=== PATIENT | male | born 1955 | race Caucasian/White ===

== ENCOUNTER 2022-03-14 07:47 | Outpatient (CLI) | payer MEDICARE, BC, SELFPAY ==
[2022-03-14 11:30] LABS: Albumin* 4.3 g/dL (3.3-5.0); Chloride* 106 mmol/L (96-114); Potassium* 4.4 mmol/L (3.6-5.1); Sodium* 142 mmol/L (135-149)
[2022-03-14 11:32] LABS: Carbon Dioxide* 32 mmol/L (20-32); Cholesterol* 140 mg/dL (90-199); Creatinine* 1.1 mg/dL (0.5-1.5); Estimated Glomerular Filt Rate 75 ml/min
[2022-03-14 11:33] LABS: Alanine Aminotransferase* 24 U/L (4-50); Alkaline Phosphatase* 83 U/L (40-150); Aspartate Amino Transferase* 38 U/L (12-35); Bilirubin Total* 0.7 mg/dL (0.1-1.5); Blood Urea Nitrogen* 19 mg/dL (7-30); Calcium* 9.5 mg/dL (8.4-10.6); HDL Cholesterol* 62 mg/dL (>=40); LDL Cholesterol Calculated 66 mg/dL (<100); Total Protein* 6.7 g/dL (6.0-8.3); Triglycerides* 60 mg/dL (40-149)
[2022-03-14 11:48] LABS: Glucose* 94 mg/dL (60-115)
[2022-03-14 12:23] LABS: PSA Screen* 2.37 ng/mL (0.10-4.00)
== END 2022-03-14 07:48 | disposition home or self-care (01) ==
PROVIDERS: PCP Family Medicine; Visit Provider Family Medicine
DX: Z00.00 Encounter for general adult medical examination without abnormal findings (principal); I48.0 Paroxysmal atrial fibrillation; Z12.5 Encounter for screening for malignant neoplasm of prostate; Z13.6 Encounter for screening for cardiovascular disorders; Z79.01 Long term (current) use of anticoagulants
CPT/HCPCS: 80053; 80061; 84153

== ENCOUNTER 2022-03-23 15:04 | Outpatient (CLI) | payer MEDICARE, BC, SELFPAY ==
--- NOTE | 2022-03-23 15:00 | CRLHL7_ITS ---
For Patients: As a result of the Century Cures Act, medical imaging exams and procedure reports are released immediately into your electronic medical record. You may view this report before your referring provider. If you have questions, please contact your health care provider. Indication: Shoulder pain Technique: Noncontrast CT left shoulder Please note that all CT scans at this facility use dose modulation, iterative reconstruction, and/or weight-based dosing when appropriate to reduce radiation dose to as low as reasonably achievable. Comparison: X-rays 03/16/2022, MRI 08/26/2019 Findings: Degenerative joint disease of the glenohumeral joint with subchondral cystic change in the posterior glenoid. Normal glenohumeral alignment without posterior subluxation or dislocation. Mild degenerative change at the greater tuberosity. Intact visualized ribs. Clear left lung. Mild dependent areas of atelectasis incidentally noted. Narrowing and spurring at the acromioclavicular joint. Mild lateral downsloping of a type 2 acromion with subacromial spur formation. No axillary adenopathy or soft tissue mass. Impression: Acromioclavicular and glenohumeral degenerative joint disease with subacromial spur suggesting clinical impingement. No fracture or intrinsic osseous lesion. Please note that all CT scans at this facility use dose modulation, iterative reconstruction, and/or weight-based dosing when appropriate to reduce radiation dose to as low as reasonably achievable. Dictated by Santosh Hess MD @ 03/24/2022 11:34:51 AM (Electronically Signed)
== END 2022-03-23 15:05 | disposition home or self-care (01) ==
LOC: CT 15:05
PROVIDERS: PCP Family Medicine; Visit Provider Physician Assistant Surgical
DX: M25.512 Pain in left shoulder (principal); M19.012 Primary osteoarthritis, left shoulder; S49.92XA Unspecified injury of left shoulder and upper arm, initial encounter
CPT/HCPCS: 73200

== ENCOUNTER 2022-09-27 08:17 | Outpatient (CLI) | payer MEDICARE, BC, SELFPAY | END 2022-09-27 08:18 | disposition home or self-care (01) | LOC: NFLDREF 08:18 | PROVIDERS: PCP Family Medicine; Visit Provider Family Medicine | DX: R30.0 Dysuria (principal); N39.0 Urinary tract infection, site not specified | CPT/HCPCS: 87086 ==

== ENCOUNTER 2022-11-25 08:10 | Emergency (ER) | payer MEDICARE, BC, SELFPAY ==
[2022-11-25 08:17] VITALS: BP 112/71; PULSE 84; RESP 17; TEMP 36.1; O2SAT 99; BMI 25.1
[2022-11-25 08:33] LABS: Appearance Urine Cloudy (Clear); Bilirubin Urine 1+ (Negative); Blood Urine 3+ (Negative); Color Urine Red (Yellow); Glucose Urine Negative (Negative); Ketones Urine Negative (Negative); Leukocyte Esterase Urine Trace (Negative); Nitrite Urine Negative (Negative); Protein Urine 3+ (Negative); Specific Gravity Urine 1.015 (1.000-1.030); Urobilinogen Urine 0.2 (0.2-1.0)
[2022-11-25 08:44] LABS: Bacteria Urine Few; RBC Urine >100 (0-2); Squamous Epithelial Cell Urine Few (None-Few); WBC Urine 25-50 (0-5)
--- NOTE | 2022-11-25 08:49 | ED.MALEGU ---
HPI - Male Genitourinary General Time Seen by Provider: 08:49 Date Seen: 11/25/22 Chief complaint: Urogenital Problems, Male Stated complaint: post op prostate, blood clot in urine Time Seen by Provider: 11/25/22 08:48 Source: patient and RN notes reviewed Mode of arrival: ambulatory Limitations: no limitations History of Present Illness HPI Narrative: This 67-year-old male is coming in with complaint of large pieces of tissue or clot in increasing blood in his urine after an aquablation of his prostate done by Dr. plascencia on Sunday at [place]. He was observed overnight, discharged on . He states he did walk the dog about 3 times yesterday, maybe about 10-15 minutes each time. Urine had been clearing up. He had seen some small clots. He had not noted any large chunks. He states he has are almost like rubbery looking. He has not had any abdominal pain, no fever. He did state that the surgeon told him he could do walking. He has not restarted his Coumadin. He is on this for atrial fibrillation and history of factor 5 Leiden. He is never had a thrombotic event. Related Data Home Medications Medication Instructions Recorded Confirmed tamsulosin 0.4 mg capsule 0.4 mg PO QDAY 05/19/22 11/07/22 finasteride 5 mg tablet 5 mg PO QDAY 11/01/22 11/07/22 flecainide 100 mg tablet 25 mg PO BID 11/01/22 11/07/22 Previous Rx's Medication Instructions Recorded peg 3350-electrolytes 236 240 ml PO Q10M #4,000 mL 07/26/22 gram-22.74 gram-6.74 gram-5.86 gram solution (Golytely) warfarin 5 mg tablet 5 mg PO QDAY #90 tabs 09/22/22 cephalexin 500 mg tablet 500 mg PO TID #9 tabs 11/25/22 Allergies Allergy/AdvReac Type Severity Reaction Status Date / Time No Known Drug Allergies Allergy Verified 11/07/22 14:35 Review of Systems Narrative: As per HPI. [facility] Medical History (Updated 11/25/22 @ 09:32 by Debby Sheriff MD) Bilateral tinnitus ?H93.13 - Tinnitus, bilateral (ICD-10) Snoring ?R06.83 - Snoring (ICD-10) Pneumonia (2016) ?J18.9 - Pneumonia, unspecified organism (ICD-10) Paroxysmal atrial fibrillation ?I48.0 - Paroxysmal atrial fibrillation (ICD-10) Numbness of toes ?R20.0 - Anesthesia of skin (ICD-10) Lumbar back pain ?M54.50 - Low back pain, unspecified (ICD-10) Factor V Leiden mutation ?D68.51 - Activated protein C resistance (ICD-10) Long-term (current) use of anticoagulants, INR goal 2.0-3.0 ?Z79.01 - senior living (current) use of anticoagulants (ICD-10) Surgical History (Updated 09/27/22 @ 09:14 by Anayeli Stewart MD) H/O cardiac radiofrequency ablation (09/2022) ?Z98.890 - Other specified postprocedural states (ICD-10) History of rhinoplasty (1999) ?Z98.890 - Other specified postprocedural states (ICD-10) History of repair of fracture of facial bone (2015) ?Z98.890 - Other specified postprocedural states (ICD-10) ?Z87.81 - Personal history of (healed) traumatic fracture (ICD-10) History of arthroscopy of knee (02/02/04) ?Z98.890 - Other specified postprocedural states (ICD-10) Family History (Updated 09/20/21 @ 15:17 by Cholo Wilson) Father CHF (congestive heart failure) Prostate cancer, Onset Age: 87 Type 2 diabetes mellitus Mother Factor V Leiden mutation Social History (Updated 03/14/22 @ 07:43 by Anayeli Stewart MD) Narrative: , 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, 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 Did see him ambulate to the bathroom. Face atraumatic, speaking complete sentences. Lungs clear, CV regular rate and rhythm no murmur, normal S1-S2. Abdomen is soft, no rebound or guarding, nontender. Documenting provider has reviewed patient's vital signs: yes Course Course ED Course: Reviewed there are white cells and blood in the urine, there is a small amount of bacteria. Patient states he was on antibiotics while he had the Lion catheter in after the procedure but stopped once this was out. Will contact Urology through [email or web address], he was wondering if it would be his own personal physician. Reviewed with him that we only contact whoever is on-call. Likely this is maybe normal tissue and blood after this surgical procedure but want to review with the surgeon on-call. Reevaluation(s) Time of Reevaluation #1: 09:30 Reevaluation #1: Reviewed my conversation with urologist. Patient also did advise me that he had a more constipated stool which he did have to push yesterday. He is on a stool softener and will stay on this. Consultations Consultation #1: Spoke with Dr. Colon, reviewed case. He agrees to place patient on Keflex for few days while we await urine culture. Limit activity. Nothing concerning here that he thinks warrants any further management or evaluation at this time. Time: :23 Vital Signs Vital signs: Initial Vital Signs Temperature 96.9 F L 11/25/22 08:17 Temperature Source Temporal Artery Scan 11/25/22 08:17 Pulse Rate 84 11/25/22 08:17 Respiratory Rate 17 11/25/22 08:17 Blood Pressure 112/71 11/25/22 08:17 Blood Pressure Mean 84 11/25/22 08:17 Pulse Oximetry 99 11/25/22 08:17 Oxygen Delivery Method Room Air 11/25/22 08:17 Vital Signs Temperature 96.9 F L 11/25/22 08:17 Pulse Rate 84 11/25/22 08:17 Respiratory Rate 17 11/25/22 08:17 Blood Pressure 112/71 11/25/22 08:17 Pulse Oximetry 99 11/25/22 08:17 Oxygen Delivery Method Room Air 11/25/22 08:17 Temperature 96.9 F L 11/25/22 08:17 Pulse Rate 84 11/25/22 08:17 Respiratory Rate 17 11/25/22 08:17 Blood Pressure 112/71 11/25/22 08:17 Pulse Oximetry 99 11/25/22 08:17 Oxygen Delivery Method Room Air 11/25/22 08:17 MDM - Male Genitourinary Lab Data Attestation: I reviewed the patient's lab results. Labs: Lab Results 11/25/22 Range/Units 08:25 Urine Color Red A (Yellow) Urine Appearance Cloudy A (Clear) Urine pH 7.0 (5.0-8.5) Ur Specific [place] 1.015 (1.000-1.030) Urine Protein 3+ A (Negative) Urine Glucose (UA) Negative (Negative) Urine Ketones Negative (Negative) Urine Blood 3+ A (Negative) Urine Nitrite Negative (Negative) Urine Bilirubin 1+ A (Negative) Urine Urobilinogen 0.2 (0.2-1.0) Ur Leukocyte Esterase Trace A (Negative) Urine RBC >100 A (0-2) Urine WBC 25-50 A (0-5) Ur Squamous Epith Cells Few (None-Few) Urine Bacteria Few A (None) Discharge Plan Discharge Clinical Impression: Hematuria Patient Disposition: Home, Self-Care Condition: Stable Additional Instructions: Continue to follow postoperative instructions. Would not have you start your Coumadin at this point. You may need to limit activity more if you are seen hematuria/bleeding. Will place you on antibiotic while we await the urine culture. Should you have bleeding to the point that clots or obstructing urine, develops abdominal pain or fever, do need to be re-evaluated. If you find that the stool softener you are on is not adequate enough, could initiate MiraLax 17 g daily to help with softer stools through this. Activity Level: No strenuous activity Prescriptions: New cephalexin 500 mg tablet 500 mg PO TID Qty: 9 0RF No Action tamsulosin 0.4 mg capsule 0.4 mg PO QDAY flecainide 100 mg tablet 25 mg PO BID finasteride 5 mg tablet 5 mg PO QDAY peg 3350-electrolytes [Golytely] 236-22.74-6.74 -5.86 gram recon soln 240 ml PO Q10M Qty: 4000 0RF Rx Instructions: until fecal effluent is clear warfarin 5 mg tablet 5 mg PO QDAY Qty: 90 0RF Protocol: Dose Management Condition: Sunday Dose/Route: 5 mg Instruction: 1 x 5 mg tablet Condition: Sunday Dose/Route: 7.5 mg Instruction: 1.5 x 5 mg tablets Condition: Sunday Dose/Route: 5 mg Instruction: 1 x 5 mg tablet Condition: Sunday Dose/Route: 5 mg Instruction: 1 x 5 mg tablet Condition: Dose/Route: 7.5 mg Instruction: 1.5 x 5 mg tablets Condition: Sunday Dose/Route: 5 mg Instruction: 1 x 5 mg tablet Condition: Sunday Dose/Route: 5 mg Instruction: 1 x 5 mg tablet Protocol Text: Adjustment Start Date: Sunday11/15/22 INR Value: 1.7 INR Date: 11/15/22 Recheck Date: 11/29/22 Follow Up/Referrals: Anayeli Stewart MD [Primary Care Provider] - Stand Alone Forms: [employer] Info Instructions
--- NOTE | 2022-11-25 09:14 | ED.NURSE ---
[facility] paged for patient, awaiting call back.
== END 2022-11-25 09:38 | disposition home or self-care (01) ==
PROVIDERS: Emergency Provider Family Medicine; PCP Family Medicine
DX: R31.9 Hematuria, unspecified (principal)
CPT/HCPCS: 81001; 87086; 99283; 99284

== ENCOUNTER 2023-01-16 07:13 | Outpatient (CLI) | payer MEDICARE, BC, SELFPAY ==
--- NOTE | 2023-01-16 08:04 | W.ANESCHARGE ---
Anesthesia Charges Start Date/Time Anesthesia Start Date: 01/16/23 Anesthesia Start Time: 08:08 Stop Date/Time Anesthesia Stop Date: 01/16/23 Anesthesia Stop Time: 08:46
--- NOTE | 2023-01-16 08:50 | W.ANESCHARGE ---
Anesthesia Charges Start Date/Time Anesthesia Start Date: 01/16/23 Anesthesia Start Time: 08:08 Stop Date/Time Anesthesia Stop Date: 01/16/23 Anesthesia Stop Time: 08:46
== END 2023-01-16 07:14 | disposition home or self-care (01) ==
LOC: OP CLINIC 07:13
PROVIDERS: PCP Family Medicine; Visit Provider Surgery
DX: Z12.11 Encounter for screening for malignant neoplasm of colon (principal); K63.5 Polyp of colon; K64.4 Residual hemorrhoidal skin tags; Z86.010 Personal history of colon polyps
CPT/HCPCS: 00811; 45385; 88305; J2704

== ENCOUNTER 2023-03-18 20:10 | Outpatient (CLI) | payer MEDICARE, BC, SELFPAY ==
--- OUTSIDE RECORDS SUMMARY | 2023-03-18 20:13 | XMS_ITS | Referral Summary ---
Author Name Unknown Organization [facility] Address [address] [place] [address] Care Team Providers Care Grinder Set Up Operator Universal Name Role Phone Unavailable Primary Care Provider Unavailabl e Source Comments Patient records contain information from all sites at [facility]. For routine questions regarding patient records, call [phone] during business hours, M-F 8:00 AM - 5:00 PM Central Time. Record requests for emergency care only can be directed to [phone] at any time.[facility] Allergies No known active allergies Medications Medication Sig Dispensed Refills Start Date End Date Status tamsulosin (FLOMAX) 0.4 mg 24 hr capsule Take 1 capsule by mouth daily. 0 03/24/2022 Active warfarin (COUMADIN) 5 mg tablet TAKE ONE AND ONE-HALF TABLETS BY MOUTH SUNDAY AND SUNDAY. TAKE 1 TABLET BY MOUTH REST OF THE WEEK DIRECTED 0 06/05/2022 Active flecainide (TAMBOCOR) 100 mg tablet Take 1 tablet by mouth 2 (two) times a day. Extra 1/2 tablet as needed in evening 0 06/06/2022 Active Active Problems Problem Noted Date Diagnosed Date Factor V Leiden Family History 07/10/2022 Intermediate (Current) Anticoagulant Treatment 06/20 Benign Prostatic Hyperplasia Without Lower Urinary Tract Symptom 07/10/2022 Incomplete Bladder Emptying 07/10/2022 Atrial Fibrillation Paroxysmal 04/01/2015 0 07/10/2022 Activated Protein C Resistance 02/27/2013 0 07/10/2022 Ventricular Premature Depolarization 02/27/2013 07/10/2022 Immunizations Name Administration Dates Next Due Influenza, Injectable, Quadrivalent 12/10/2019,1 03/29/2018 Influenza, Quadrivalent, Adjuvanted, Preservativ e Free 11/25/2021 PCV20 03/14/2022 Tdap 06/26/2018 influenza vaccine QV(FLUBLOK) (18 years or older ) (PF) 11/17/2020 influenza vaccine quad (FLUZ ONE/FLUARIX) (6 months and older)(PF) 01/26/2018 Social History Tobacco Use Types Packs/Day Years Used Date Smoking Tobacco: Never Smokeless Tobacco: Never Humiliation, Afraid, Rape, and Kick questionnair e Answer Date Recorded Within the last year, have y ou been afraid of your partner or ex-partner? No 07/10/2022 Within the last year, have y ou been humiliated or emotionally abused in other ways by your partner or ex-partner? No Within the last year, have y ou been kicked, hit, slapped, or otherwise physically hurt by your partner or ex-partner? No 07/10/2022 Within the last year, have y ou been raped or forced to have any kind of sexual activity by your partner or ex-partner? No 07/10/2022 Social Connection and Isolat ion Panel [NHANES] Answer Date Recorded In a typical week, how many times do you talk on the phone with family, friends, or neighbors? More than three times a week 07/10/2022 How often do you get togethe r with friends or relatives? More than three times a week 07/10/2022 How often do you attend chur or pentecostalism services? More than 4 times per year 07/10/2022 Do you belong to any clubs o r organizations such as mandaen groups, unions, fraternal or athletic groups, or school groups? Yes 07/10/2022 How often do you attend meet ings of the clubs or organizations you belong to? More than 4 times per year 07/10/2022 Are you , , di vorced, , never , or living with a partner? 07/10/2022 AUDIT-C Answer Date Recorded Q1: How often do you have a drink containing alc ohol? Monthly or less 07/10/2022 Q2: How many drinks containi ng alcohol do you have on a typical day when you are drinking? 1 or 2 07/10/2022 Q3: How often do you have si x or more drinks on one occasion? Never 07/10/2022 Overall Financial Resource Strain (CARDIA) Answe r Date Recorded How hard is it for you to pa y for the very basics like food, housing, medical care, and heating? Not hard at all 07/10/2022 [facility] - Occupational Stress Questionnaire Answer Date Recorded Do you feel stress - tense, restless, nervous, or anxious, or unable to sleep at night because your mind is troubled all the time - these days? Only a little 07/10/2022 Exercise Vital Sign Answer Date Recorde d On average, how many days pe r week do you engage in moderate to strenuous exercise (like a brisk walk)? 4 days 07/10/2022 On average, how many minutes do you engage in exercise at this level? 60 min 07/10/2022 Hunger Vital Sign Answer Date Recorded Within the past 12 months, y ou worried that your food would run out before you got the money to buy more. Never true 07/11/19 23 Within the past 12 months, t he food you bought just didn't last and you didn't have money to get more. Never true 07/10/2022 PRAPARE - Transportation Answer Date Re corded In the past 12 months, has l ack of transportation kept you from medical appointments or from getting medications? No 06/20 In the past 12 months, has l ack of transportation kept you from meetings, work, or from getting things needed for daily living? No 07/10/2022 Housing Stability Vital Sign Answer [place] e Recorded In the last 12 months, was t here a time when you were not able to pay the mortgage or rent on time? No 07/10/2022 In the last 12 months, how many places have you lived? 1 07/10/2022 In the last 12 months, was t here a time when you did not have a steady place to sleep or slept in a fdc (including now)? No 07/10/2022 Nutrition Answer Date Recorded Nutrition: EVOO Fat Source No 07/10 On average, how many serving s of fruits and vegetables do you eat per day (serving size is equal to 1 cup or approximately the size of a tennis ball)? 2-3 07/10/2022 Dental Answer Date Recorded Dental: Regular Dentist Yes 07/11/19 Employment Answer Date Recorded Employment status Employed and actively working without restrictions 07/10/2022 Education Answer Date Recorded What is the highest level of school you have completed or the highest degree you have received? 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
--- OUTSIDE RECORDS SUMMARY | 2023-03-18 20:13 | XMS_ITS ---
Author Name Unknown Organization [facility] Address [address] [place] [address] Care Team Providers Care Die Cutter Apprentice Name Role Phone Unavailable Unavailable Unavailable Surgery Details Not on file Complications Check Surgery Details section. Procedure Estimated Blood Loss Check Surgery Details section. Procedure Findings Check Surgery Details section. Procedure Specimens Taken Check Surgery Details section.
--- OUTSIDE RECORDS SUMMARY | 2023-03-18 20:13 | XMS_ITS | Clinical Summary ---
Author Name Unknown Organization [facility] Address [address] [place] [address] Care Team Providers Care Ratings Analyst Name Role Phone Unavailable Primary Care Provider Unavailabl e Source Comments Patient records contain information from all sites at [facility]. For routine questions regarding patient records, call [phone] during business hours, M-F 8:00 AM - 5:00 PM Central Time. Record requests for emergency care only can be directed to [phone] at any time.[facility] Allergies No known active allergies Medications [...] Date Factor V Leiden Family History 07/10/2022 Alf (Current) Anticoagulant Treatment 06/20 Benign Prostatic Hyperplasia [...] (FLUZ ONE/FLUARIX) (6 months and older)(PF) 01/26/2018 Family History Medical History Relation Name Comments Diabetes Father Heart failure Father Prostate cancer Father Factor V Leiden Mother Relation Name Status Comments Father Mother Social History Tobacco Use Types Packs/Day Years [...] How often do you attend chur or mormonism services? More than 4 times per year 07/10/2022 Do you belong to any clubs o r organizations such as hinduism groups, unions, fraternal or athletic groups, or [...] and heating? Not hard at all 07/10/[address] [facility] - Occupational Stress Questionnaire Answer Date Recorded [...] place to sleep or slept in a senior care (including now)? No 07/10/2022 Nutrition Answer Date [...] Master's degree (e.g., NHUNG, MS, Taran, MEd, EDUCATIONAL THERAPY TEACHER, JUSTUS) 07/10/2022 Sex and Gender Information Value Date Recorded Sex Assigned at Male 07/10/2022 8:15 AM CDT Gender Identity Male 07/10/2022 8:15 AM CDT Sexual Orientation Straight 07/10/2022 8: 15 AM CDT Plan of Treatment Health Maintenance Due Date Last Done Comments CT Colonography 1956 Cologuard 1955 Colonoscopy 1955 Colorectal Cancer Screening 1955 FIT 1956 Fasting Glucose for Diabetes Screening 1955 Hepatitis C Screening 1955 Zoster Vaccines (1 of 2) 2006 Depression Screening (Annual PHQ-2) 02/19/2022 Fall Risk Screen (Annual) 02/19/2022 DTaP,Tdap,and Td Vaccines (2 - Td or Tdap) 06/26/2028 06/26/2018 Pneumococcal vaccine (65+ years) Completed 03/14/19 23 COVID-19 Vaccine Completed 01/30/2023, 08/2021, 06/30/2021, Additional history exists Influenza Vaccine Completed 01/30/2023, , 11/17/2020, Additional history exists
--- OUTSIDE RECORDS SUMMARY | 2023-03-18 20:13 | XMS_ITS | Data Portability ---
Author Name Unknown Address [address] [place] [address] Phone [phone] Organization [facility], [facility] Address [address] [place] [address] Care Team Providers Care Server Security Administrator Name Role Phone ALEX SHIN Primary Care Provider Assessment No assessment recorded. Plan of Treatment Reminders Order Date Submit Date Provider Last Modified By Organization Details Last Modified Time Details Appointments ESTABLISH ED 10 2023 10:30A M Mansoor ely MD Not available Not available Not available Lab urinalysi s, dipstick 2022 023 [email or web address] [facility], [address] [place], [address], 10/17/2022 11:38:18 Referral None recorded. Procedures None recorded. Surgeries transuret hral resection of prostate (SURG) 2022 023 [email or web address] Not available 11/21/2022 09:17:54 Imaging None recorded. Medication Orders finasteri de 5 mg tablet 2022 023 [id number], [address] [place], [place], [phone], 12/29/2022 15:19:09 finasteri de 5 mg tablet 2022 023 [id number], [address] [place], [place], [phone], 09/06/2022 11:12:16 Patient TargetsNo targets recorded. Patient Instructions Encounter Date Encounter Id Patient Instructions Last Modified By Organization Details Last Modified Time 12/29/2022 [id number] Jake is ecstati c s/p Aquablation. He'll stop Flomax, and continue finasteride for another 3 months - then stop. With me in 3 months. Not available 12/29/2022 15:19:27 10/17/2022 [id number] I had a long discussion with the patient regarding his symptom severity and his findings from both his imaging and cystoscopy. We first discussed continued medical therapy with alpha-blockade with or without the addition of finasteride 5 mg daily. We discussed expectations in terms of symptom improvement with combination medical therapy as outlined by the MTOPS trial. We then discussed minimally invasive procedures done under anesthesia in the office, notably the Rezum, and Urolift procedures. We discussed surgical outlet procedures done under anesthesia including bi-polar transurethral resection of prostate, transurethral laser vaporization of prostate and Aquablation, which involves high-pressure saline hydrodissection as its core technology for prostate removal. We discussed the technical aspects of these three procedures and that ultimately the goal is the same. We then discussed the associated risks including bleeding requiring transfusion, urinary tract infection, injury to the bladder/ureteral orifices/urinary sphincter, urethral stricture formation, anesthetic risks (CVA/DVT/PE/TN), postoperative urinary retention, and expected durability of treatment with anticipated retreatment rate. We discussed that Aquablation may reduce any worsening in sexual dysfunction post-operatively, but this data is not yet mature. He would like to proceed with Aquablation once it is safe for him to undergo a Coumadin window, possibly in mid Nov 2022. Continue combo therapy until then - patient is tenuously emptying today (we reviewed this). Not available 10/17/2022 11:38:58 Reason for Referral None Reported. Results Created Date Observation Date Name Description Value Unit Range Abnormal Flag LastModifiedBy Organization Detail LastModifiedTime 10/18/19 23 10/17/2022 urina lysis , dipst ick Color-Status Yellow Not Available [facility] [address], [place], [address], 10/17/2022 10:18:52 10/18/19 23 10/17/2022 urina lysis , dipst ick Clarity-Stat us Clear Not Available [facility] [address], [place], [address], 10/17/2022 10:18:52 10/18/19 23 10/17/2022 urina lysis , dipst ick Glucose-Stat us Negati ve Not Available [facility] [address], [place], [address], 10/17/2022 10:18:52 10/18/19 23 10/17/2022 urina lysis , dipst ick Bilirubin-St atus Negati ve Not Available [facility] [address], [place], [address], 10/17/2022 10:18:52 10/18/19 23 10/17/2022 urina lysis , dipst ick Ketones-Stat us Negati ve Not Available [facility] [address], [place], [address], 10/17/2022 10:18:52 10/18/19 23 10/17/2022 urina lysis , dipst ick Sp Helena-Stat us >=1.03 0 Not Available [facility] [address], [place], [address], 10/17/2022 10:18:52 10/18/19 23 10/17/2022 urina lysis , dipst ick Nitrates-Sta tus negati ve Not Available [facility] [address], [place], [address], 10/17/2022 10:18:52 10/18/19 23 10/17/2022 urina lysis , dipst ick Blood-Status Negati ve Not Available [facility] [address], [place], [address], 10/17/2022 10:18:52 10/18/19 23 10/17/2022 urina lysis , dipst ick Leuko-Status Negati ve Not Available [facility] [address], [place], [address], 10/17/2022 10:18:52 10/18/19 23 10/17/2022 urina lysis , dipst ick Specimen Type Voided Not Available [facility] [address], [place], [address], 10/17/2022 10:18:52 Result Notes None recorded. Problems Name Status Onset Date Resolution Date Notes Provider Name and Address Organization Details Recorded Time Lower urinary tract symptoms due to benign prostatic hypertrophy Active 10/18/19 23 Mansoor Abreu MD [address] [place] [address],[address], [address], [facility] 10/17/2022 11:37:18 Retention of urine Active 10/18/19 23 Mansoor Abreu MD [address] [place] [address],[address], [address], [facility] 10/17/2022 11:37:22 Incomplete emptying of bladder Active 10/18/19 23 Mansoor Abreu MD [address] [place] [address],[address], [address], [facility] 10/17/2022 11:37:28 Problem Notes None recorded. Procedures Surgical History Date Name Laterality Status Provider Name and Address Organization Details Recorded Time 12/30/19 23 Bladder Scan completed Juany cordova [facility] 12/29/2022 14:54:57 10/18/19 23 CystoscopyMale completed Mansoor Abreu MD [address] [place] [address],[address], [address], [facility] 10/17/2022 11:37:16 10/18/19 23 Bladder Scan completed Mansoor Abreu MD [address] [place] [address],[address], [address], [facility] 10/17/2022 10:18:49 09/07/19 23 Fill and Pull/Voiding Trial/TOV completed Juany cordova [facility] 09/06/2022 10:41:29 08/20/19 23 cardiac ablation using fluoroscopy guidance completed Juany cordova [facility] 09/06/2022 10:30:04 Imaging Results None recorded. Procedure Notes None recorded. Medical Equipment None Reported. Allergies No known drug allergies Medications Name Sig Start Date Stop Date Status Note LastModified by Organization Details LastModified Time cyclobenzap rine 10 mg tablet TAKE 1/2 TO 1 TABLET BY MOUTH THREE TIMES DAILY NEEDED FOR MUSCLE SPASM active Not Available Not Available No t Available amoxicillin 500 mg capsule TAKE 1 CAPSULE BY MOUTH TWICE DAILY FOR 7 DAYS 10/17 completed Not Available Not Available Not Available flecainide 150 mg tablet active Not Available Not Available Not Available fluconazole 150 mg tablet active Not Available Not Available Not Available warfarin 2.5 mg tablet Take 1 tablet every day by oral route. active Not Available Not Available No t Available ciprofloxac in 500 mg tablet 10/17 completed Not Available Not Available Not Available amoxicillin 875 mg tablet TAKE 1 TABLET BY MOUTH TWICE DAILY 10/17 completed Not Available Not Available Not Available tamsulosin 0.4 mg capsule Take 1 capsule every day by oral route. active Not Available Not Available No t Available cephalexin 500 mg capsule TAKE 1 CAPSULE BY MOUTH THREE TIMES DAILY 12/29 completed Not Available Not Available Not Available pantoprazol e 40 mg tablet,rekha yed release active Not Available Not Available Not Available warfarin 5 mg tablet TAKE 1 TABLET BY MOUTH EVERY DAY OR DIRECTED active Not Available Not Available No t Available flecainide 100 mg tablet TAKE 1 TABLET BY MOUTH EVERY 12 HOURS. MAY TAKE AN EXTRA 1/2 TABLET IN THE PM NEEDED active Not Available Not Available No t Available finasteride 5 mg tablet TAKE 1 TABLET BY MOUTH EVERY DAY 2022 active Not Available Not Available Not Avai lable flecainide active Not Available Not Av ailable Not Available GaviLyte-G 236 gram-22.74 gram-6.74 gram-5.86 gram oral solution active Not Available Not Available Not Available Vitals Date Recorded Body height Body mass index (BMI) Body weight Provider Name and Address Organization Details Last Updated DateTime 09/06/2022 182.88 cm 25.1 kg/m2 47740.59 g Juanychaya Gomezsenthil cordova [facility] 09/06/2022 10:28:38 Date Recorded Body height Body mass index (BMI) Body weight Provider Name and Address Organization Details Last Updated DateTime 10/17/2022 182.88 cm 25.1 kg/m2 76835.59 g Mansoor Abreu MD [address] [place] [address],[address], [address] [place] [address] 10/17/2022 10:17:51 Date Recorded Body height Body mass index (BMI) Body weight Provider Name and Address Organization Details Last Updated DateTime 12/29/2022 182.88 cm 25.1 kg/m2 55089.59 g Juany cordova [facility] 12/29/2022 14:52:31 Social History Question Answer Notes LastModified by Organizat ion Details LastModified Time Tobacco Smoking Status Never Smoker Juany Maldonado tasha [facility] 09/06/2022 10:29:40 What Is Your Level Of Alcohol Consumption? Occasional [email or web address] Information not available 09/06/2022 What Was The Date Of Your Most Recent Tobacco Screening? 12/29/2022 [email or web address] Information not available 12/29/2022 Sex: Male Functional Status None recorded. Mental Status None recorded. Family History Nothing Reported. Medical History Condition Response Kidney Stones N Depression N GERD/Acid Reflux N Cancer N Diabetes N Bleeding Disorder Y Immunizations Vaccine Type Date Status Provider Name and Address Organization Details Recorded Time influenza, injectable, quadrivalent 12/10/2019 completed Mansoor Abreu MD [address] [place] [address],[address] [place] [address], [address], [facility] 10/17/2022 10:17:39 influenza, injectable, quadrivalent 01/26/2019 completed Mansoor Abreu MD [address] [place] [address],[address], [address], [facility] 10/17/2022 10:17:39 influenza, recombinant, quadrivalent,injecta ble, preservative free 11/17/2020 completed Mansoor Abreu MD [address] [place] [address],[address] [place] [address] [place], [address], [facility] 10/17/2022 10:17:39 Influenza vaccine, quadrivalent, adjuvanted 11/25/2021 completed Mansoor Abreu MD [address] [place] [address],[address], [place], [address], [facility] 10/17/2022 10:17:39 COVID-19, mRNA, LNP-S, PF, 100 mcg/0.5mL dose or 50 mcg/0.25mL dose 06/30/2021 completed Mansoor Abreu MD [address] [place] [address],[address], [place], [address], [facility] 10/17/2022 10:17:39 COVID-19, mRNA, LNP-S, PF, 30 mcg/0.3 mL dose 03/18/2020 completed Mansoor Abreu MD [address] [place] [address],[address], [address], [facility] 10/17/2022 10:17:39 COVID-19, mRNA, LNP-S, PF, 30 mcg/0.3 mL dose 04/11/2020 completed Mansoor Abreu MD [address] [place] [address],[address], [address], [facility] 10/17/2022 10:17:39 COVID-19, mRNA, LNP-S, PF, 30 mcg/0.3 mL dose 12/23/2020 completed Mansoor Abreu MD [address] [place] [address],[address], [address], [facility] 10/17/2022 10:17:39 Pneumococcal conjugate PCV20, polysaccharide [id number] conjugate, adjuvant, PF 03/14/2022 completed Mansoor Abreu MD [address] [place] [address],[address], [address], [facility] 10/17/2022 10:17:39 COVID-19, mRNA, LNP-S, bivalent, PF, 50 mcg/0.5 mL or 25mcg/0.25 mL dose 11/25/2021 completed Mansoor Abreu MD [address] [place] [address],[address] [place], [address], [facility] 10/17/2022 10:17:39 Tdap 06/26/2018 completed Mansoor Abreu MD [address] [place] [address],[address], [address], [facility] 10/17/2022 10:17:39 influenza, injectable, quadrivalent, preservative free 01/26/2018 completed Mansoor Abreu MD [address] [place] [address],[facility] [address], [address], [facility] 10/17/2022 10:17:39 Past Encounters Encounter ID Performer Location Encounter Start Date Encounter Closed Date Diagnosis/Indication [id number] CAMELIA GUARDADO [facility] [address] [place] [address] 09/06/2022 10:12:45 09/14/2022 17:59:31 Retention of urine [id number] Mansoor Abreu MD [facility] [address] [place] [address] 10/17/2022 10:02:51 10/20/2022 14:45:08 Lower urinary tract symptoms due to benign prostatic hypertrophy Retention of urine Incomplete emptying of bladder [id number] Mansoor Abreu MD [facility] [address] [place] [address] 12/29/2022 14:45:22 01/03/2023 15:45:39 Lower urinary tract symptoms due to benign prostatic hypertrophy Retention of urine Health Concerns Section Related Observation LastModified by Organization Detai ls LastModified Time None Recorded Concern Status LastModified by Organization Details LastModified Time None Recorded Advance Directives Directive None Recorded Payers Encounter Date Sequence Insurance Name Policy Number Policy Avitia Covered Member ID Avitia Member ID Guarantor Name 12/29/2022 1 [place] [id number] Jake Del Cid [id number] Jake Del Cid 10/17/2022 1 [place] [id number] Jake Del Cid [id number] Jake Del Cid 09/06/2022 1 [place] [id number] Jake Del Cid [id number] Jake Del Cid Notes Date Note Type Note Provider Name and Address Organization Details Recorded Time 09/06/2022 text/html HPI Notes: 67yo male here for evaluation of urinary retention and TOV. He had palma placed at [facility] after a cardiac ablation procedure 1 week ago. Has noted some hematuria with the catheter after activity, he does take coumadin. Prior to the above procedure, reports has seen urology several months ago for retention sx and BPH with LUTS- sx of nocturia and frequency. Had cysto which showed trilobar hyperplasia. Has been on flomax. PSA: 02/03/14- 1.34 Reports this was checked within the last year and it was normal per his recollection (apparently in [place] system). Mhx: afib Fhx: father with prostate cancer (Dx in 80's), brother with BPH CAMELIA GUARDADO [address] [facility],[address], [place], [address], [facility] 09/06/2022 11:12:33 10/17/2022 text/html HPI Notes: 67yo following up for BPH/LUTS, recent urinary retention, passed voiding trial on combo therapy last month. He had palma placed at [facility] after a cardiac ablation procedure Aug 2022. On Coumadin (and mandatory until Nov). Prior to the above procedure, reports has seen urology several months ago for retention sx and BPH with LUTS- sx of nocturia and frequency. Had cysto which showed trilobar hyperplasia. PSA: 02/03/14- 1.34 Reports this was checked within the last year and it was normal per his recollection (apparently in [place] system). Mhx: afib Fhx: father with prostate cancer (Dx in 80's), brother with BPH PVR today 375 mL. Mansoor Abreu MD [address] [facility] [facility],[address], [place], [address], [facility] 10/17/2022 11:39:11 12/29/2022 text/html HPI Notes: 67M s /p Aquablation 11/22/2022, here for follow up. Path: benign. 85 gram gland, recovery has been routine, and back on warfarin. Jake is very happy - great stream, nocturia x 0-1. Emptied bladder before coming over, random bladder scan today: 73 mL (was 375 pre op). Mansoor Abreu MD [address] [facility] [facility],[address], [place], [address], [facility] 12/29/2022 15:19:35
--- OUTSIDE RECORDS SUMMARY | 2023-03-18 20:13 | XMS_ITS | Continuity of Care Document ---
Author Name Unknown Address [address] [place] [address] Phone [phone] Organization [facility], [facility] Address [address] [place] [address] Care Team Providers Care Lotus Notes Administrator Name Role Phone MECLHORALEX LANDURM Primary Care Provider [phone] Assessment No assessment recorded. Plan of Treatment Reminders Order Date Submit Date Provider Last Modified By Organization Details Last Modified Time Details Appointments ESTABLISH ED 10 2023 10:30A M Mansoor ely MD Not available Not available Not available Lab None recorded. Referral None recorded. Procedures None recorded. Surgeries None recorded. Imaging None recorded. Medication Orders finasteri de 5 mg tablet 2022 023 [id number], [address] [place], [place], [id number], 12/29/2022 15:19:09 Patient TargetsNo targets recorded. Patient Instructions Encounter Date Encounter Id Patient Instructions Last Modified By Organization Details Last Modified Time 12/29/2022 [id number] Jake is ecstati c s/p Aquablation. He'll stop Flomax, and continue finasteride for another 3 months - then stop. With me in 3 months. Not available 12/29/2022 15:19:27 Reason for Referral None Reported. Problems Name Status Onset Date Resolution Date Notes Provider Name and Address Organization Details Recorded Time Lower urinary tract symptoms due to benign prostatic hypertrophy Active 10/18/19 23 Mansoor Abreu MD [address] [place] [address],[address], [place], [address], [facility] 10/17/2022 11:37:18 Retention of urine Active 10/18/19 23 Mansoor Abreu MD [address] [place] [address],[address], [place], [address], [facility] 10/17/2022 11:37:22 Incomplete emptying of bladder Active 10/18/19 23 Mansoor Abreu MD [address] [place] [address],[address], [place], [address], [facility] 10/17/2022 11:37:28 Problem Notes None recorded. Procedures Surgical History Date Name Laterality Status Provider Name and Address Organization Details Recorded Time 12/30/19 23 Bladder Scan completed Juany cordova [facility] 12/29/2022 14:54:57 10/18/19 23 CystoscopyMale completed Mansoor Abreu MD [address] [place] [address],[address], [place], [address], [facility] 10/17/2022 11:37:16 10/18/19 23 Bladder Scan completed Mansoor Abreu MD [address] [place] [address],[facility] [address], [place], [address], [facility] 10/17/2022 10:18:49 09/07/19 23 Fill and Pull/Voiding Trial/TOV completed Juany cordova [facility] 09/06/2022 10:41:29 08/20/19 23 cardiac ablation using fluoroscopy guidance completed Juany cordova [facility] 09/06/2022 10:30:04 Imaging Results None recorded. Procedure [...] Updated DateTime 12/29/2022 182.88 cm 25.1 kg/m2 33956.59 g Juany cordova [facility] 12/29/2022 14:52:31 Social History Question Answer Notes LastModified by Organizat ion Details LastModified Time Tobacco Smoking Status Never Smoker Juany cordova [facility] 09/06/2022 10:29:40 What Is Your Level Of Alcohol Consumption? Occasional Information not available 09/06/2022 What Was The Date Of Your Most Recent Tobacco Screening? 12/29/2022 [email or web address] Information not available 12/29/2022 Sex: Male Functional Status None recorded. Mental Status None recorded. Family History Nothing Reported. Medical History Condition Response Diabetes N Bleeding Disorder Y Kidney Stones N Cancer N Depression N GERD/Acid Reflux N Immunizations Vaccine Type Date Status Provider Name and Address Organization Details Recorded Time influenza, injectable, quadrivalent 12/10/2019 completed Mansoor Abreu MD [address] [facility],[address], [place], [address], [facility] 10/17/2022 10:17:39 influenza, injectable, quadrivalent 01/26/2019 completed Mansoor Abreu MD [address] [place] [address],[address] [place] [address], [address], [facility] 10/17/2022 10:17:39 influenza, recombinant, quadrivalent,injecta ble, preservative free 11/17/2020 completed Mansoor Abreu MD [address] [place] [address],[address] [place] [address], [address], [facility] 10/17/2022 10:17:39 Influenza vaccine, quadrivalent, adjuvanted 11/25/2021 completed Mansoor Abreu MD [address] [place] [address],[address] [place] [address], [address], [facility] 10/17/2022 10:17:39 COVID-19, mRNA, LNP-S, PF, 100 mcg/0.5mL dose or 50 mcg/0.25mL dose 06/30/2021 completed Mansoor Abrue MD [address] [place] [address],[address], [place], [address], [facility] 10/17/2022 10:17:39 COVID-19, mRNA, LNP-S, PF, 30 mcg/0.3 mL dose 03/18/2020 completed Mansoor Abreu MD [address] [place] [address],[address], [place], [address], [facility] 10/17/2022 10:17:39 COVID-19, mRNA, LNP-S, PF, 30 mcg/0.3 mL dose 04/11/2020 completed Mansoor Abreu MD [address] [place] [address],[address], [place], [address], [facility] 10/17/2022 10:17:39 COVID-19, mRNA, LNP-S, PF, 30 mcg/0.3 mL dose 12/23/2020 completed Mansoor Abreu MD [address] [place] [address],[address], [place], [address], [facility] 10/17/2022 10:17:39 Pneumococcal conjugate PCV20, polysaccharide [id number] conjugate, adjuvant, PF 03/14/2022 completed Mansoor Abreu MD [address] [place] [address],[address], [address], [facility] 10/17/2022 10:17:39 COVID-19, mRNA, LNP-S, bivalent, PF, 50 mcg/0.5 mL or 25mcg/0.25 mL dose 11/25/2021 completed Mansoor Abreu MD [address] [place] [address],[address], [address], [facility] 10/17/2022 10:17:39 Tdap 06/26/2018 completed Mansoor Abreu MD [address] [place] [address],[address], [address], [facility] 10/17/2022 10:17:39 influenza, injectable, quadrivalent, preservative free 01/26/2018 completed Mansoor Abreu MD [address] [place] [address],[address], [address], [facility] 10/17/2022 10:17:39 Past Encounters Encounter ID Performer Location Encounter Start Date Encounter Closed Date Diagnosis/Indication [id number] Mansoor Abreu MD [facility] [address] [place] [address] 12/29/2022 14:45:22 01/03/2023 15:45:39 Lower urinary tract symptoms due to benign prostatic hypertrophy Retention of urine Health Concerns Section Related Observation LastModified by Organization Detai ls LastModified Time None Recorded Concern Status LastModified by Organization Details LastModified Time None Recorded Payers Encounter Date Sequence Insurance Name Policy Number Policy Avitia Covered Member ID Avitia Member ID Guarantor Name 12/29/2022 1 [place]) [id number] Jake Del Cid [id number] Jake Del Cid Notes Date Note Type Note Provider Name and Address Organization Details Recorded Time 12/29/2022 text/html HPI Notes: 67M s /p Aquablation 11/22/2022, here for follow up. Path: benign. 85 gram gland, recovery has been routine, and back on warfarin. Jake is very happy - great stream, nocturia x 0-1. Emptied bladder before coming over, random bladder scan today: 73 mL (was 375 pre op). Mansoor Abreu MD [address] [facility],[address], [place], [address], [facility] 12/29/2022 15:19:35
--- OUTSIDE RECORDS SUMMARY | 2023-03-18 20:14 | XMS_ITS | Clinical Summary ---
Author Name Unknown Organization [facility] Address [place], [place] [address] Care Team Providers Care Analytical Manager Name Role Phone Anayeli Stewart MD Primary Care Provider + Allergies Active Allergy Reactions Criticality Noted Date Comments Quinolones Other - Describe In Comment Field 11/16/2022 Ascending aorta dilatation Medications Medication Sig Dispensed Refills Start Date End Date Status warfarin (COUMADIN) 5 mg tablet Take by mouth once daily. Take 5 mg on Sun/Sun/Sun/Sun/S at and 7.5 mg on M/Th 0 Active finasteride (PROSCAR) 5 mg tablet Take 5 mg by mouth every morning. 0 Active cyanocobalamin (Vitamin B-12) 1,000 mcg tablet Take by mouth once daily. 0 11/15/2022 Active flecainide (TAMBOCOR) 150 mg tabletIndications:Par oxysmal atrial fibrillation (HC) Take 0.5 Tablets (75 mg) by mouth every 12 hours. 90 Tablet 3 01/03/2023 Active temazepam (RESTORIL) 30 mg capsuleIndications:OS A (obstructive sleep apnea) Take 1 Capsule (30 mg) by mouth at bedtime if needed for Sleep. Take prior to procedure 1 Capsule 0 03/01/2023 Active Active Problems Problem Noted Date Diagnosed Date BPH with obstruction/lower urinary tract symptom s 11/23/2022 Paroxysmal atrial fibrillation 04/01/2015 PVCs (premature ventricular contractions) 2013 Factor V Leiden 02/27/2013 Encounters Date Type Department Care Team Description 03/01/2023 3:30 PM HEAT SEAL OPERATOR Office Visit [address] [place] [address] Eloy Akbar MD Sleep Consult 03/01/2023 Travel 01/16/2023 Lab Requisition [facility] [phone] Garfield Montaño MD 01/03/2023 11:20 AM HEAT SEAL OPERATOR Office Visit [facility] [address] [place] [address] [address] [place] [address] Cheryl Lozoya NP CV Electrophysiology Est (F/U visit S/P ablation. Increased dose of flecainide recently, still is feeling palpitations. Questions about plan moving forward. ) 01/03/2023 Orders Only [facility] [address] [place] [address] Emely Wayne <No scans attached> 01/03/2023 Travel 12/19/2022 8:30 AM CDT Nurse/Clinic Staff Only [facility] [address] [place] [address] Cardiovascular Diagnostic Testing (ECG PER DR. VEGA) 12/19/2022 Travel 12/18/2022 Telephone [facility] [address] [facility] [address] [place] [id number] Kamari Vega MD Results (EKG) 12/16/2022 Travel from Last 3 Months Immunizations Name Administration Dates Next Due Influenza RIV4 (Age 18+ Years) PRESERV FREE 10/21 Influenza, IIV4 01/26/2018 Influenza, IIV4 (=>6mos) MDV 12/10/2019,01/27/20 19 Tdap 06/26/2018 Family History Medical History Relation Name Comments Other Brother 2 hole in his he art Factor V Good Health Mother Other Sister 3 hole in her he art Factor V Good Health Sister 4 Relation Name Status Comments Brother 1 Alive Brother 2 Father (Age 92) Mother Alive Sister 1 Alive Sister 2 Alive Sister 3 Sister 4 Social History Tobacco Use Types Packs/Day Years Used Date Smoking Tobacco: Never Smokeless Tobacco: Never Tobacco Cessation:Counseling Given: Not Answered Alcohol Use Standard Drinks/Week Comments Yes 0 (1 standard drink = 0.6 oz pur e alcohol) maybe 1 or 2 beers a month Social Connections Answer Date Recorded Frequency of Communication with Friends and Fami ly 0 09/02/2022 Financial Resource Strain Answer Date R ecorded Difficulty of Paying Living Expenses 3 09/02/2022 Difficulty of Paying Living Expenses Not on file 09/02/2022 Food Insecurity Answer Date Recorded Worried About Running Out of Food in the Last Ye ar 1 09/02/2022 Transportation Needs Answer Date Record ed Lack of Transportation (Medical) 1 09/02/2022 Housing Stability Answer Date Recorded Unable to Pay for Housing in the Last Year 1 09/02/2022 Sex and Gender Information Value Date Recorded Sex Assigned at Male 06/15/2021 12:20 PM CDT Gender Identity Male 06/15/2021 12:20 PM CDT Sexual Orientation Choose not to disclose 2021 12:20 PM CDT Obstetrics History Last Filed Vital Signs Vital Sign Reading Time Taken Comments Blood Pressure 119/73 03/01/2023 3:33 PM HEAT SEAL OPERATOR Pulse 51 03/01/2023 3:33 PM HEAT SEAL OPERATOR Temperature 37.1 ??C (98.7 ??F) 11/23/2022 3:29 PM CD T Respiratory Rate 16 11/23/2022 3:29 PM CDT Oxygen Saturation 99% 03/01/2023 3:33 PM HEAT SEAL OPERATOR Inhaled Oxygen Concentration - - Weight 86.3 kg (190 lb 3.2 oz) 03/01/2023 3:33 P M HEAT SEAL OPERATOR Height 182.9 cm (6') 03/01/2023 3:33 PM HEAT SEAL OPERATOR Body Mass Index 25.8 03/01/2023 3:33 PM HEAT SEAL OPERATOR Plan of Treatment Upcoming Encounters Date Type Department Care Team (Late st Contact Info) Description 04/04/2023 2:30 PM HEAT SEAL OPERATOR Office Visit [facility] [address] [place] [address] Eloy Akbar MD [address] [place] [address] 05/30/2023 8:00 AM CDT Office Visit [facility] [address] [place] [address] Raoul Quiroz MD [address] [place] [address] Health Maintenance Due Date Last Done Comments Hepatitis C screening for ag e 18-79 1974 Colonoscopy through age 75 2001 Lipids for age 45-75 2001 Zoster (shingles) series for age 50+ (1 of 2) 2006 Depression screening for age 12+ 07/15/2016 07/16/2015, 07/16/2015, 07/16/2015, Additional history exists Medicare Wellness for age 65+ 2021 Pneumococcal series for age 65+ (1 of 1 - PCV) 2021 COVID-19 vaccine series (2022-24 season) 2022 11/25/2021, 06/30/2021, 12/23/2020, Additional history exists Influenza for age 65+ 10/20/2022 11/17/2020 , 12/10/2019, 01/26/2019, Additional history exists BMI (ht and wt on same day) for age 18+ 03/01/2024 03/01/2023, 01/03/2023, 11/16/2022, Additional history exists Tetanus booster 06/26/2028 06/26/2018 Tdap Completed 06/26/2018 Procedures Procedure Name Priority Date/Time Associated Diagnosis Comments LAB TRACKING EVENT Routine 01/16/2023 8: 35 AM HEAT SEAL OPERATOR PATH TISSUE EXAM Routine 01/16/2023 8:35 AM HEAT SEAL OPERATOR EKG 12 LEAD Routine 12/21/2022 10:12 AM CDT Paroxysmal atrial fibrillation (HC) from Last 3 Months Results * LAB TRACKING EVENT (01/16/2023 8:35 AM HEAT SEAL OPERATOR) Other (Other) Client Collect / Unknown 01/16/2023 8:35 AM HEAT SEAL OPERATOR 01/16/2023 8:53 PM HEAT SEAL OPERATOR Garfield Montaño MD LAB BILL ONLY [facility] [address] [place] [address], [place] * PATH TISSUE EXAM (01/16/2023 8:35 AM HEAT SEAL OPERATOR) Case Report Pathology Report ?Case: [id number] ? Authorizing Provider: ??Garfield Montaño MD ?Collected: ? 01/16/2023 0835 ? Ordering Location: ? [facility] ?Received: ?01/16/20232111 ? Pathologist: ? Kishan Pang ? IV, MD ? Specimens: ?? A) - Cecal Polyp ? B) - Ascending Colon Polyp ? C) - Sigmoid Polyp ? 01/17/2023 4:05 PM HEAT SEAL OPERATOR [facility] Final Diagnosis A) COLON, CECUM, POLYPECTOMIES: 1. Sessile serrated adenoma (1), tubular adenoma (1) and normal colonic mucosa ??(clinically, 3 polyps) 2. Negative for overt dysplasia 3. Per the colonoscopy report: ?? a. Polyp sizes: 2 mm - 8 mm ?? b. Resection: Complete ?? c. Retrieval: Complete B) COLON, ASCENDING, POLYPECTOMY: 1. Normal colonic mucosa (clinically, 1 polyp) 2. Negative for serrated change, dysplasia, and malignancy C) COLON, SIGMOID, POLYPECTOMY: 1. Tubular adenoma 2. Negative for high grade dysplasia 3. Per the colonoscopy report: ?? a. Polyp size: 2 mm ?? b. Resection: Complete ?? c. Retrieval: Complete 01/17/2023 4:[address] [facility] Clinical Information Mr. Del Cid is a 67 y.o. who presents for surveillance colonoscopy. Colonoscopy findings include: -3, 2-8 mm cecal polyps -1, 2 mm ascending polyp -1, 2 mm sigmoid polyp 01/17/2023 4:[address] [facility] Gross Description A) Received in formalin are 4 borrego mucosal fragments ranging from 4 mm to 8 mm in greatest dimension, which are entirely submitted in one cassette. It is labeled with the patient's name and designated cecum colon polyps. B) Received in formalin is a borrego mucosal fragment measuring 9 mm in greatest dimension, which is entirely submitted in one cassette. It is labeled with the patient's name and designated ascending colon polyps. C) Received in formalin is a borrego mucosal fragment measuring 9 mm in greatest dimension, which is entirely submitted in one cassette. It is labeled with the patient's name and designated sigmoid colon polyps. Hoang Hernández 01/16/2023 9:19 PM 01/17/2023 4:05 PM HEAT SEAL OPERATOR [facility] Microscopic Description The final diagnosis is based on microscopic examination of appropriate sections of all specimens. 01/17/2023 4:05 PM HEAT SEAL OPERATOR [facility] Additional Information Interpreted at [facility] - [address] [facility] [address] [address] 01/17/2023 4:05 PM HEAT SEAL OPERATOR [facility] Other (Cecal Polyp) 01/16/2023 8:35 AM HEAT SEAL OPERATOR 01/16/2023 9:12 PM HEAT SEAL OPERATOR Specimen (specimen) (Ascending Colon Polyp) 01/16/2023 8:35 AM HEAT SEAL OPERATOR 01/16/2023 9:12 PM HEAT SEAL OPERATOR Specimen (specimen) (Sigmoid Polyp) 01/16/2023 8:35 AM HEAT SEAL OPERATOR 01/16/2023 9:12 PM HEAT SEAL OPERATOR Garfield Montaño MD PATHOLOGY[facility] [address] [place] [address], * EKG 12 LEAD (12/21/2022 10:12 AM CDT) Kamari Vega MD EKG ORD from Last 3 Months Advance Directives Latest Code Status on File Code Status Date Activated Date Inactivated Comments Full Code 11/22/2022 5:57 AM 11/23/2022 7:16 PM Question Answer Comments Code Status Discussion: Unable to Assess Preferences, Provider to review later Code Status History Code Status Date Activated Date Inactivated Comments Full Code 08/28/2022 3:34 PM 08/30/2022 3:57 PM Question Answer Comments Code Status Discussion: Reviewed Preferences Care Teams Analytical Manager Relationship Specialty Start Date End Date Anayeli Stewart MD [address] [place] [address] PCP - General Family Practice 05/03/16
--- OUTSIDE RECORDS SUMMARY | 2023-03-18 20:14 | XMS_ITS | Encounter Summary ---
Author Name Unknown Organization [facility] Address [address] [place] [address] Care Team Providers Care Reinforcing Steel Placer Name Role Phone Unavailable Primary Care Provider Unavailabl e Encounter Details Date Type Department Care Team (Late st Contact Info) Description 07/10/2022 8:20 AM CDT Ancillary Procedure Department of Urology Social History Tobacco Use Types Packs/Day Years [...] 07/10/2022 How often do you attend chur ch or religion services? More than 4 times per year 07/10/2022 Do you belong to any clubs o r organizations such as yazidi groups, unions, fraternal or athletic groups, or [...] and heating? Not hard at all 07/10/2022 [facility] Occup[facility] ional [facility] - Occupational Stress [...] place to sleep or slept in a chcf (including now)? No 07/10/2022 Nutrition Answer Date [...] degree you have received? Master's degree (e.g., MA, MS, Taran, MEd, [employer], [employer]) 07/10/2022 Sex and Gender Information Value Date Recorded Sex Assigned at Male 07/10/2022 8:15 AM CDT Gender Identity Male 07/10/2022 8:15 AM CDT Sexual Orientation Straight 07/10/2022 8: 15 AM CDT documented as of this encounter Plan of Treatment Not on file documented as of this encounter Procedures Procedure Name Priority Date/Time Associated Diagnosis Comments UROLOGY IMAGE EXAM Routine 07/10/2022 8: 20 AM CDT documented in this encounter Results * [facility]ADDER-Urology Image Exam (07/10/2022 8:20 AM CDT) 07/10/2022 8:20 AM CDT Narrative IIMS - 07/10/2022 9:12 AM CDT This order has been created and auto-finalized to support the import of images acquired without order. The clinical documentation to support these images can be found on the encounter that produced images. Provider Not In System IMG NON RAD IMAGI NG PROCEDURES IIM[facility] NA documented in this encounter Visit Diagnoses Not on filedocumented in this encounter
--- OUTSIDE RECORDS SUMMARY | 2023-03-18 20:14 | XMS_ITS | Encounter Summary ---
Author Name Unknown Organization [facility] Address [address] [place] [address] Care Team Providers Care Inside B2B Sales Name Role Phone Unavailable Primary Care Provider Unavailabl e Reason for Referral * Outpatient (Routine) - Closed Specialty Diagnoses / Procedures Referred By Contac t Referred To Contact Diagnoses Benign Prostatic Hyperplasia Without Lower Urinary Tract Symptom Incomplete Bladder Emptying Procedures Cystoscopy Naomi Senior APRN, C.N.P. [address] [phone] [facility] Region Referral ID Status Reason Start Date Expiration Date Visits Re quested Visits Authorized [id number] Closed 07/10/2022 07/10/2023 1 1 * Outpatient (Routine) - Closed Specialty Diagnoses / Procedures Referred By Contac t Referred To Contact Procedures Cystoscopy Naomi Senior APRN, C.N.P. [address] [phone] [facility] Region Referral ID Status Reason Start Date Expiration Date Visits Re quested Visits Authorized [id number] Closed 07/10/2022 07/10/2023 1 1 Reason for Visit * Reason Comments Consult Benign Prostatic Hypertrophy * Outpatient (Routine) - Closed Specialty Diagnoses / Procedures Referred By Contac t Referred To Contact Urology Diagnoses Benign Prostatic Hyperplasia Without Lower Urinary Tract Symptom Anayeli Stewart M.D. [address] [place] [address] [facility] Region Referral ID Status Reason Start Date Expiration Date Visits Re quested Visits Authorized [id number] Closed 06/23/2022 06/23/2023 1 1 Encounter Details Date Type Department Care Team (Latest Contact Info) Description 07/10/2022 8:30 AM CDT Comprehensive Visit Department of Urology in [place], [place] [address], [place] [phone] Naomi Senior APRN, C.N.P. [address] [place] [phone] Benign Prostatic Hyperplasia Without Lower Urinary Tract Symptom (Primary Dx); Incomplete Bladder Emptying Social History Tobacco Use Types Packs/Day Years [...] week 07/10/2022 How often do you attend [facility] or pentecostal services? More than 4 times per year 07/10/2022 Do you belong to any clubs o r organizations such as sabianist groups, unions, fraternal or athletic groups, or [...] and heating? Not hard at all 07/10/2022 [facility] - Occupational Stress [...] place to sleep or slept in a detention (including now)? No 07/10/2022 Nutrition Answer Date [...] Master's degree (e.g., MA, MS, Taran, MEd, SED SPECIAL EDUCATION TEACHER, [employer]) 07/10/2022 Sex and Gender Information Value Date Recorded Sex Assigned at Male 07/10/2022 8:15 AM CDT Gender Identity Male 07/10/2022 8:15 AM CDT Sexual Orientation Straight 07/10/2022 8: 15 AM CDT documented as of this encounter Procedure Notes * Naomi Senior APRN, C.N.P. - 07/10/2022 8:30 AM CDTAssociated Order(s): Cystoscopy Post-Procedure Diagnose(s): Incomplete Bladder Emptying; Benign Prostatic Hyperplasia Without LowerUrinary Tract Symptom Cystoscopy Performed by: Naomi Senior APRN, C.N.P. Authorized by: Naomi Senior APRN, C.N.P. Care team members present 1. Naomi Senior APRN, C.N.P. 2. Zeny Shine R.N. 3. Varinder Espinoza M.D. IMPRESSION BPH Additional procedures performed: cystoscopy PROCEDURE DETAILS Anterior urethra: Normal: yes Posterior urethra: Normal: yes Prostate: Characteristics: Hyperplasia - trilobar and median lobe present Median lobe - size (estimated cm): 3 Prostate - estimated length (cm): 4.5 Sphincter: Characteristics: Coapting Ureters: Characteristics: Effluxing clear urine Effluxing clear urine - side: Bilateral Bladder: Normal: no Trabeculation: Moderate Lesions: None Stones present: no Fistula visualized: no Capacity: Moderate Quality of urine: Clear Residual volume (cc): 350 (catheterized volume) Retroflex view: Normal: no Prostate: Character: Intravesical protrusion Blue light imaging agent used: no A flexible cystoscope was inserted through the urethra into the bladder. Cystoscope was removed at the end of procedure. CONSENT Consent obtained: verbal Consent given by: patient The benefits, risks and alternatives to the procedure and the potential need for sedation or anesthesia as well as the names, roles, and responsibilities of healthcare team members performing significant interventional tasks were discussed with the patient and/or decision maker. UNIVERSAL PROTOCOL All relevant documentation and testing were reviewed and available. All required blood products, implants, devices and or special equipment were made available as applicable. Pre-procedure verification was conducted and the correct site was marked if required. A fire risk assessment was done as applicable. The procedural time-out to verify correct patient, correct side/site, and procedure was conducted prior to performing the procedure and confirmed in a procedural pause. PRE-PROCEDURE DETAILS Procedure purpose: Diagnostic Indications: BPH with LUTS Appropriate hand hygiene, gown, cap, mask, protective eyewear, sterile gloves, skin preparation, sterile drape, and strict aseptic technique were utilized as applicable for the procedure.: yes Site preparation: Povidone-iodine SEDATION / ANESTHESIA Anesthesia method: topical application Topical application type: lidocaine POST-PROCEDURE DETAILS Procedure completed successfully: yes Complications: no apparent complications COMMENTS Dr. Espinoza was present for portions of procedure. documented in this encounter Consult Notes * Naomi Senior APRN, C.N.P. - 07/10/2022 8:30 AM CDT SUBJECTIVE REQUESTING PROVIDER Anayeli Stewart M.D. REASON FOR CONSULT Lower urinary tract symptoms/BPH HISTORY OF PRESENT ILLNESS Jake is a pleasant 66 year old male here today for consultation for Benign Prostatic Hypertrophy with lower urinary tract symptoms. He states that he started having some intermittent symptoms a few years ago, this has gotten much worse in the last months. He has decreased his fluid intake so that he does not have to urinate so often. About a year ago he had symptoms of burning and frequency withurination. He was treated with antibiotics and this improved his symptoms. He has been prescribed Flomax, he has been taking this intermittently. This causes him to have retrograde ejaculation which is bothersome for him. He does note that if he is taking this several days in a row that his urinary symptoms are better. He gets up 1 or 2 times at night. His bowels are usually regular, he is occasionally constipated and uses prune juice. He is scheduled for a cardiac ablation on August 28. He will be out of the country from August 03 to August 21 visiting family in [place]. His father was diagnosed prostate cancer in his 80s. He has abrother with Benign Prostatic Hypertrophy. I-PSS Urinary Symptoms Score: 18 I-PSS Quality of Life Score: 3 PSA History Jan 2014 1.34 Lower Urinary Symptoms Lower Urinary Sx: able to sense full bladder (+) frequency (+) 8 x per day 2 x nightly Obstructive Sx: weak stream (+) kidney infections or required hospitalization for kidney failure (-) # of UTI's in past year: None Required catheter: no Incontinence: dribbling (+) urge incontinence (+) unintentionally leaks urine (-) Treatments: Treatments taken for urinary symptoms: medications treatments helped (+) had surgical or office procedures to improve urinary symptoms (-) The following portions of the patient's history were reviewed and updated as appropriate: allergies, current medications, family history, medical history, social history, surgical history, and problem list. REVIEW OF SYSTEMS Genitourinary: Positive for frequent urination. Past Medical History: Diagnosis Date Atrial Fibrillation Paroxysmal (HCC) 04/01/2015 Factor V Leiden Family History 07/10/2022 Respiratory Care Faculty (Current) Anticoagulant Treatment 07/10/2022 Ventricular Premature Depolarization 02/27/2013 No past surgical history on file. Family History Problem Relation Age of Onset Factor V Leiden Mother Heart failure Father Prostate cancer Father 87 Diabetes Father No Known Allergies Current Outpatient Medications on File Prior to Visit Medication Sig Dispense Refill flecainide (TAMBOCOR) 100 mg tablet Take 1 tablet by mouth 2 (two) times a day. Extra 1/2 tablet asneeded in evening tamsulosin (FLOMAX) 0.4 mg 24 hr capsule Take 1 capsule by mouth daily. warfarin (COUMADIN) 5 mg tablet TAKE ONE AND ONE-HALF TABLETS BY MOUTH SUNDAY AND SUNDAY. TAKE 1 TABLET BY MOUTH REST OF THE WEEK DIRECTED No current facility-administered medications on file prior to visit. OBJECTIVE There were no vitals filed for this visit. PHYSICAL EXAM Vitals and nursing note reviewed. General: Well developed, well nourished, well groomed male in no acute distress. Neurological: Alert, cooperative, oriented x3. Appropriate mood and affect. Head: Normal appearance, no abnormalities, normocephalic. Neck: Symmetrical and supple, trachea is midline. Cardiac: regular rate, regular rhythm. Respiratory: Respirations are unlabored with normal respiratory rate and normal respiratory movements. Abdomen: Soft, non-tender, non-distended Vascular: There are +2 pulses noted in both upper and lower extremities. : Skin color and turgor appropriate for region. No ulcers, erythema, rashes, or pigmented lesionsnoted. MALE: Penis is without abnormal skin, contour changes or plaques. Meatus appears normal and is located in normal position on glans penis. No urethral discharge. Testicles of normal size, descended bilaterally with no masses or tenderness. No thickening or tenderness of the epididymis or spermatic cords. Bilateral inguinal exam reveals no hernia and no inguinal lymphadenopathy. PROSTATE: Perianal area intact without lesions or visible hemorrhoids. No fissures or fistulas. Good sphincter tone, no masses. Prostate is symmetrical, smooth, enlarged, non-tender and without nodules. Seminal vesicles are non- palpable. Approximate size is 35-40 grams. Extremities: Warm, without edema or ulcerations. Musculoskeletal: [place] is symmetrical and balanced. DIAGNOSTIC Uroflow is performed utilizing calibrated electronic equipment. Patient voided 50 mL over seconds. Peak flow mL/sec, average flow mL/sec. Postvoid residual by bladder scan 455 mL. Catheterized [id number] mL. ASSESSMENT / PLAN 1. Benign Prostatic Hyperplasia Without Lower Urinary Tract Symptom 2. Incomplete Bladder Emptying We had an in-depth discussion about his urinary symptoms, cystoscopy results, and next steps going forward. We discussed that he does have a large, obstructive prostate with a middle lobe. He is given information about GreenLight PVP and HoLEP procedures. He is encouraged to take Flomax daily, especially when traveling. We discussed that his incomplete bladder emptying over long period of time could be detrimental and cause atonic bladder and may require permanent use of intermittent catheters in the future if we do not deal with this. He will contact us to discuss scheduling of procedure, josh also need to test PSA level prior to scheduling any procedure. All questions answered today. - Cystoscopy Signed by: Naomi Senior APRN C.N.PHollie 07/10/2022 8:05 AM CDT Answers submitted by the patient for this visit: Urinary Symptoms (Submitted on 07/10/2022) Sensation that your bladder is not completely emptying after urinating: Yes documented in this encounter Plan of Treatment Not on file documented as of this encounter Procedures Procedure Name Priority Date/Time Associated Diagnosis Comments RI CYSTOURETHROSCOPY Routine 07/10/2022 8:30 AM CDT Benign Prostatic Hyperplasia Without Lower Urinary Tract Symptom Incomplete Bladder Emptying documented in this encounter Results * RI CYSTOURETHROSCOPY (07/10/2022 8:30 AM CDT) Narrative Naomi Senior APRN, C.N.P. - 07/10/2022 8:30 AM CDT Naomi Senior APRN C.N.P. ? 07/10/2022 ??4:56 PM Cystoscopy Performed by: Naomi Senior APRN, C.N.P. Authorized by: Naomi Senior APRN C.N.P. ?? Care team members present 1. Naomi Senior APRN C.N.P. 2. Zeny Shine R.N. 3. Varinder Espinoza M.D. IMPRESSION ?? BPH Additional procedures performed: cystoscopy ?? PROCEDURE DETAILS Anterior urethra: ??Normal: yes ?? Posterior urethra: ??Normal: yes ?? Prostate: ??Characteristics: ??Hyperplasia - trilobar and median lobe present ??Median lobe - size (estimated cm): ??3 ??Prostate - estimated length (cm): ??4.5 Sphincter: ??Characteristics: ??Coapting Ureters: ??Characteristics: ??Effluxing clear urine ??Effluxing clear urine - side: ??Bilateral Bladder: Normal: no ?Trabeculation: ??Moderate ??Lesions: ??None Stones present: no ?? Fistula visualized: no ?Capacity: ??Moderate ??Quality of urine: ??Clear ??Residual volume (cc): ??350 (catheterized volume) Retroflex view: Normal: no ?? Prostate: ??Character: ??Intravesical protrusion Blue light imaging agent used: ??no A flexible cystoscope was inserted through the urethra into the bladder. Cystoscope was removed at the end of procedure. CONSENT Consent obtained: verbal Consent given by: patient The benefits, risks and alternatives to the procedure and the potential need for sedation or anesthesia as well as the names, roles, and responsibilities of healthcare team members performing significant interventional tasks were discussed with the patient and/or decision maker. UNIVERSAL PROTOCOL All relevant documentation and testing were reviewed and available. All required blood products, implants, devices and or special equipment were made available as applicable. Pre-procedure verification was conducted and the correct site was marked if required. A fire risk assessment was done as applicable. The procedural time-out to verify correct patient, correct side/site, and procedure was conducted prior to performing the procedure and confirmed in a procedural pause. PRE-PROCEDURE DETAILS Procedure purpose: ??Diagnostic Indications: ??BPH with LUTS Appropriate hand hygiene, gown, cap, mask, protective eyewear, sterile gloves, skin preparation, sterile drape, and strict aseptic technique were utilized as applicable for the procedure.: yes ?? Site preparation: ??Povidone-iodine SEDATION / ANESTHESIA Anesthesia method: topical application Topical application type: lidocaine POST-PROCEDURE DETAILS Procedure completed successfully: yes ?? Complications: no apparent complications ?? COMMENTS Dr. Espinoza was present for portions of procedure. Naomi Senior APRN, C.N.PHollie UROLOGY O RDERABLES documented in this encounter Visit Diagnoses Diagnosis Benign Prostatic Hyperplasia Without Lower Urinary Tract Symptom- Primary Incomplete Bladder Emptying documented in this encounter
--- OUTSIDE RECORDS SUMMARY | 2023-03-18 20:14 | XMS_ITS | Encounter Summary ---
Author Name Unknown Organization [facility] Address [address] [place] [address] Care Team Providers Care Molding Room Supervisor Name Role Phone Unavailable Primary Care Provider Unavailabl e Reason for Visit * Reason Onset Date Comments Triage 06/23/2022 Encounter Details Date Type Department Care Team (Late st Contact Info) Description 06/23/2022 Clinical Communication Department of Urology in [address] [phone] Racquel Cohen, P.A.-C. [address], [place] [phone] Triage Social History Tobacco Use Types Packs/Day Years Used Date Smoking Tobacco: Never Assessed Nutrition Answer Date Recorded Nutrition: EVOO Fat Source Unknown 06/23 Nutrition: Servings of Fruits/Vegetables per Day Not on file 06/23/2022 Dental Answer Date Recorded Dental: Regular Dentist Unknown 06/24/19 Sex and Gender Information Value Date Recorded Sex Assigned at Male 07/10/2022 8:15 AM CDT Gender Identity Male 07/10/2022 8:15 AM CDT Sexual Orientation Straight 07/10/2022 8: 15 AM CDT documented as of this encounter Plan of Treatment Not on file documented as of this encounter Visit Diagnoses Not on filedocumented in this encounter
--- OUTSIDE RECORDS SUMMARY | 2023-03-18 20:14 | XMS_ITS | Encounter Summary ---
Author Name Unknown Organization [facility] Address [address] [place] [address] Care Team Providers Care Clin Application Specialist Name Role Phone Unavailable Primary Care Provider Unavailabl e Reason for Referral * Outpatient (Routine) - Closed Specialty Diagnoses / Procedures Referred By Nichol ashley Referred To Contact Urology Diagnoses Benign Prostatic Hyperplasia Without Lower Urinary Tract Symptom Anayeli Stewart M.D. [address] [place] [address] [facility] Region Referral ID Status Reason Start Date Expiration Date Visits Re quested Visits Authorized [id number] Closed 06/23/2022 06/23/2023 1 1 Encounter Details Date Type Department Care Team (Late st Contact Info) Description 06/23/2022 [facility] [address] [place] [address] Anayeli Stewart M.D. [address] [place] [address] Benign Prostatic Hyperplasia Without Lower Urinary Tract Symptom (Primary Dx) Social History Tobacco Use Types Packs/Day Years [...] as of this encounter Plan of Treatment Scheduled Referrals Name Type Priority Associated Diagnoses Orde r Schedule Urology Referral Outpatient Referral Routine Benign Prostatic Hyperplasia Without Lower Urinary Tract Symptom Expected: 06/23/2022 (Approximate), Expires: 09/24/2023 documented as of this encounter Visit Diagnoses Diagnosis Benign Prostatic Hyperplasia Without Lower Urinary Tract Symptom- Primary documented in this encounter
== END 2023-03-18 20:11 | disposition home or self-care (01) ==
LOC: SLEEP 20:11
PROVIDERS: PCP Family Medicine; Visit Provider Internal Medicine
DX: G47.33 Obstructive sleep apnea (adult) (pediatric) (principal)
CPT/HCPCS: 95811

== ENCOUNTER 2023-10-16 12:43 | Outpatient (CLI) | payer MEDICARE, BC, SELFPAY ==
--- OUTSIDE RECORDS SUMMARY | 2023-10-16 12:45 | XMS_ITS | Clinical Summary ---
Author Organization [employer] [facility] Address [place], [place] [address] Care Team Providers Care Cutter Hand Name Role Phone Anayeli Stewart MD Primary Care Provider + Allergies Active Allergy Reactions Criticality Noted Date Comments Quinolones Other - Describe In Comment Field 11/16/2022 Ascending aorta dilatation Medications Medication Sig Dispensed Refills Start Date End Date Status warfarin (COUMADIN) 5 mg tablet Take by mouth once daily. Take 5 mg on Sun/Sun/Sun/ i/Sat and 7.5 mg on / Active cyanocobalamin (Vitamin B-12) 1,000 mcg tablet Take 1,000 mcg by mouth once daily. 11/15/2022 Active CPAPIndications:OS A (obstructive sleep apnea) Resmed CPAP machine for home use at pressure 6cmw , nasal mask x1/3month with nasal cushion x2/mo 1 Each 11 06/12/2023 Active flecainide (TAMBOCOR) 50 mg tabletIndications: Paroxysmal atrial fibrillation (HC) Take 1 Tablet (50 mg) by mouth every 12 hours. 09/03/2023 Active pantoprazole (PROTONIX) 40 mg delayed-release tabletIndications: Paroxysmal atrial fibrillation (HC),S/P ablation of atrial fibrillation Take 1 Tablet (40 mg) by mouth once daily. 14 Tablet 09/03/2023 09/17/2023 Discontinued (*Med complete/Reg imen complete/Lev el of care change) Active Problems Problem Noted Date Diagnosed Date HALIMA 03/18/2023 AHI- 14 06/12/2023 BPH with obstruction/lower urinary tract symptom s 11/23/2022 Paroxysmal atrial fibrillation 04/01/2015 PVCs (premature ventricular contractions) 2013 Factor V Leiden 02/27/2013 Encounters Date Type Department Care Team Description 09/17/2023 Telephone [facility] [address] [place] [address] Diomedes Brown MD Refill Request (Protonix) 09/11/2023 Telephone [facility] [address] [facility] [address] [place] [phone] Diomedes Brown MD Refill Request (Furosemide) 09/03/2023 8:12 AM CDT Anesthesia Event [facility] [address] [place] [address] Olvin Verdin MD 09/03/2023 6:46 AM CDT - 09/03/2023 6:30 PM CDT Hospital Encounter [facility] [address] [place] [address] Diomedes Brown MD Milshteyn, Mark L, MD S/P ablation of atrial fibrillation (Primary Dx); Paroxysmal atrial fibrillation (HC) Discharge Disposition: Home Self Care 09/03/2023 Travel 08/31/2023 Telephone [facility] [address] [place] [address] Juany Dean RN Anticoagulation 08/30/2023 9:00 AM CDT Orders Only [facility] [address] [place] [address] Lab, [place] [facility] 08/30/2023 Travel from Last 3 Months Immunizations Name [...] of Communication with Friends and Fami ly Not on file 09/03/2023 Financial Resource Strain Answer Date R ecorded [...] Sign Reading Time Taken Comments Blood Pressure 113/68 09/03/2023 4:17 PM CDT Pulse 51 09/03/2023 4:17 PM CDT Temperature 36.7 ??C (98 ??F) 09/03/2023 4:17 PM CDT Respiratory Rate 20 09/03/2023 4:17 PM CDT Oxygen Saturation 97% 09/03/2023 4:17 PM CDT Inhaled Oxygen Concentration - - Weight 85.9 kg (189 lb 4.8 oz) 09/03/2023 6:59 A M CDT Height 182.9 cm (6') 09/03/2023 6:59 AM CDT Body Mass Index 25.67 09/03/2023 6:59 AM CDT Plan of Treatment Upcoming Encounters Date Type Department Care Team (Late st Contact Info) Description 01/01/2024 8:00 AM [employer] Office Visit [facility] [address] [place] [address] Cheryl Lozoya NP [address] [place] [address] Health Maintenance Due Date Last Done Comments [...] Additional history exists Influenza for age 65+ 10/21/2023 11/17/2020 , 12/10/2019, 01/26/2019, Additional history exists BMI (ht and wt on same day) for age 18+ 06/11/2024 06/12/2023, 05/30/2023, 04/04/2023, Additional history exists Tetanus booster 06/26/2028 06/26/2018 Tdap Completed 06/26/2018 Procedures Procedure Name Priority Date/Time Associated Diagnosis Comments EKG 12 LEAD Routine 09/03/2023 12:56 PM CDT HCHG ACTIVATED CLOTTING TM CV Timed 09/03/2023 11:46 AM CDT CV PROCEDURE TO BE PERFORMED Routine 09/03/2023 10:56 AM CDT HCHG ACTIVATED CLOTTING TM CV Timed 09/03/2023 10:39 AM CDT HCHG ACTIVATED CLOTTING TM CV Timed 09/03/2023 10:16 AM CDT HCHG ACTIVATED CLOTTING TM CV Timed 09/03/2023 9:44 AM CDT HCHG ACTIVATED CLOTTING TM CV Timed 09/03/2023 9:14 AM CDT EP STUDY /ABLATION Routine 09/03/2023 8: 48 AM CDT ENDOTRACHEAL TUBE Routine 09/03/2023 8:4 1 AM CDT ENDOTRACHEAL TUBE Routine 09/03/2023 8:4 1 AM CDT EKG 12 LEAD Preop 09/03/2023 7:31 AM CDT EXTRA TUBE GOLD/SST Today 09/03/2023 7 :02 AM CDT PROTIME-INR Preop 09/03/2023 7:02 AM CDT CBC W PLT NO DIFF Preop 09/03/2023 7:0 2 AM CDT BASIC METABOLIC PANEL Preop 09/03/2023 7:02 AM CDT SCAN-CARDIAC STRIP 09/03/2023 12 :00 AM CDT PROTIME-INR Routine 08/30/2023 9:07 AM CDT Paroxysmal atrial fibrillation (HC) from Last 3 Months Results * EKG 12 LEAD (09/03/2023 12:56 PM CDT) Only the most recent of2 resultswithin the time period is included. Interpretation Sinus bradycardia Left anterior fascicular block Cannot rule out Anterior infarct , age undetermined Abnormal ECG When compared with ECG of 03-Sep-2023 07:31, No significant change was found BEYOND NOW Ventricular Rate 53 BPM BEYOND NOW Atrial Rate 53 BPM BEYOND NOW P-R Interval 152 ms BEYOND NOW QRS Duration 100 ms BEYOND NOW QT 446 ms BEYOND NOW QTc 418 ms BEYOND NOW P [place] 56 degrees BEYOND NOW R [place] -67 degrees BEYOND NOW T [place] 8 degrees BEYOND NOW 09/03/2023 12:5 6 PM CDT 09/04/2023 1:46 PM CDT Celina Estrada RN EKG ORD BEYOND NOW [place], [place] * (ABNORMAL) ACTIVATED CLOTTING TIME [id number] ACT (09/03/2023 11:46 AM CDT) Only the most recent of5 resultswithin the time period is included. ACTIVATED CLOTTING TIME, POCT 186(H) 74 - 125 sec 09/04/2023 5:24 AM CDT [facility] Blood BLOOD SPECIMEN / Unknown 09/03/2023 11:46 AM CDT 09/04/2023 5:24 AM CDT Diomedes Brown MD [facility] [address] [place] [address], * EP Procedure to be Performed (09/03/2023 10:56 AM CDT) Narrative Diomdees Brown MD - 09/03/2023 10:56 AM CDT Diomedes Brown MD ? 09/03/2023 10:58 AM Cardiac Electrophysiology Immediate Post Procedure Note Preoperative Diagnosis: ??Atrial fibrillation, paroxysmal, PVCs Procedure: ??successful re-isolation of LIPV and RSPV and ablation of RVOT PVC along anteroseptal RVOT Findings/Conclusions: ??successful ablation for atrial fibrillation and PVCs Postoperative Diagnosis: ??Same as preoperative diagnosis Complications: ??None Personally monitored patient with conscious sedation during procedure: No Estimated Blood Loss: ??minimal Specimen: ??N/A Plan: Bedrest for 3 hours Likely discharge home later today Surgeon: Diomedes Brown MD Diomedes Brown MD SKI TOPPER ORD * EP STUDY /ABLATION (09/03/2023 8:48 AM CDT) Anatomical Region Laterality Modality X-Ray Angiograph y, X-Ray Angiography 09/03/2023 8:48 AM CDT Narrative Transcriptions Diomedes Brown MD - 09/12/2023 11:36 PM CDT [facility] Electrophysiology Procedure/Implant Report Name: KARO DEL CID Event Date: 09/03/2023 [facility] ID #: [id number] Date: 1955 Gender: Male Age: 68 [facility] #: [id number] Procedure Performed By: DIOMEDES BROWN ReferringPhysician: Summary / Conclusions ARRHYTHMIA * RVOT PVC's successfully ablated. * Paroxysmal atrial fibrillation observed, with successful ablation. CONDUCTION * The AV node conduction is normal. * The His/Purkinje system conduction is normal. POST ABLATION * Patient observed for at least 30 minutes post ablation, prior tocatheter removal. * Post ablation testing with isoproterenol infusion revealed normal basicintervals. PRESSURE LINE * A pressure transducer was placed during the procedure to monitor leftatrial pressure. DISCUSSION * ICE Catheter utilized during procedure. VASCULAR ACCESS * Using ultrasound guidance and a percutaneous technique, the rightfemoral vein was accessed. Ultrasound was used to confirm vessel patency,localizing needle into the lumen of the vessel. For safety purposes, apicture was saved for the medical record. * Using ultrasound guidance and a percutaneous technique, the left femoralvein was accessed. Ultrasound was used to confirm vessel patency,localizing needle into the lumen of the vessel. For safety purposes, apicture was saved for the medical record. Pre-Operative Diagnosis ? Paroxysmal atrial fibrillation ? Palpitations ? PVCs Post-Operative Diagnosis ? Same as Pre-operative diagnosis Indications ? Same as Pre-operative diagnosis Brief Patient History Paroxysmal atrial fibrillation -08/28/2022: s/p afib ablation (and likely PV atrial ectopy, noPVCs present for mapping) Frequent PAC's- 13% 07/2022 History of PVCs -minimally symptomatic Sinus node dysfunction Moderate left atrial enlargement Factor V Leiden mutation Preserved left ventricular systolic function Enlarged aorta - followed by Dr. Sanz CHADS2-VASc score one (age); on warfarin for factor V Leiden We discussed the risks, benefits, alternatives, complications, personnel,procedure details, rationale, and logistics of catheter ablation forarrhythmias including but not limited to the risk of CVA, SC, cardiacarrest, perforation, tamponade, AV block requiring pacemaker, esophagealor nerve injury, need for surgical intervention, vascular injury,bleeding, complications from anesthesia, respiratory failure, infections,and . He is agreeable to proceed. Consent & Centerview Protocol Centerview protocol was followed. TIME OUT conducted just prior tostarting procedure confirmed patient identity, site/side, procedure,patient position, and availability of correct equipment and implants (ifapplicable). The risks, benefits, and alternatives of the procedure were discussed withthe patient and written informed consent was obtained. Procedure Description The patient arrived to the EP laboratory in sinus rhythm. Informedconsent was affirmed and a time-out was performed with the necessaryparticipants. The patient was placed under anesthesia. The patient wasprepped and draped in the usual fashion and local anesthetic wasinfiltrated into the groin sites; sheaths were placed in the left femoralvein and in the right femoral vein with ultrasound guidance overguidewires. The intracardiac echo (ICE) was placed via the left femoralvein and advanced to the right atrium and a CS catheter was advanced intothe coronary sinus. The ICE demonstrated normal pulmonary vein anatomy.There were occasional PVCs with LBBB morphology and inferior axis and wewere able to pacemap a region in the high RVOT anteriorly that was 92-95%pacematch to the clinical PVC. Ablations here suppressed the PVC. The PVCswould recover and after further ablation more anteriorly and superiorlythe PVCs were eradicated. Via the right femoral vein, LA instrumentationwas performed with a single transseptal puncture using a Brk needle, ICE,and fluoroscopy for guidance. Systemic anticoagulation with intravenousheparin was initiated prior to the transseptal puncture with a target ACTof 350 - 400 sec. Ablations across the posterior wall were limited [id number] for 10 seconds. The Faveous NAVX electro-anatomical mapping systemwas used to create geometry and voltage of the left atrium and thepulmonary veins with the HD-Grid and Tactiflex mapping/ablation catheter.The was an area of recovery along the left sided veins on the ridge and onthe right sided veins along the posterior nate. After ablation, weverified both entrance and exit block from within the veins. We did notfind any non-PV triggers. Antegrade AV conduction and HV intervals werenormal. There was no evidence for dual AV eliza physiology and no typicalor atypical echos. Adenosine was used to assess for reconnection in thepulmonary veins and the veins remained isolated. The procedure wasterminated. ICE demonstrated no pericardial effusion. Systemicanticoagulation was discontinued and partially reversed with intravenousProtamine. Sheaths were pulled using manual pressure to achievehemostasis. The patient tolerated the procedure well and there were noimmediate complications. Electrophysiology Study Data Basic Intervals Study State Underlying Rhythm Cycle Length KS PA AH HV QRS [place] QRSMorphology Baseline NSR 1588 159 92 47 Baseline NSR 1164 165 Antegrade 1:1 AV Node Function Study State Pacing Site AV Node SCL 1:1 AH HV Dual AVN Physiology? AVNFast 1:1 AVN Slow 1:1 Wenkebach Cycle Length Post Ablation CS 420 400 Refractory Periods Study State Pacing Site Paced Cycle Length Paced Cycle ERP AVN ERP DualNode Physiology? AVN ERP (fast) AVN ERP (slow) Post Ablation Isuprel CS 600 250 Yes 340 Study Events Atrial 600 250 Ablation Data Atrial Fibrillation Energy Source Ablation Catheter Used Rhythm During Ablation # of AttemptsMax Tim Max Temp. Result RF TactiFlex NSR 14 45 25 Success Esophageal Baseline Temp: 35.5o C Esophageal Peak Temp: 0.1o C Max Temp Increase During Ablation: 35.7o C Left atrial lesion sets were placed. The left inferior pulmonary vein was isolated. The left superior pulmonary vein was isolated. The right inferior pulmonary vein was isolated. The right superior pulmonary vein was isolated. A circumferential lesion set was placed around the right pulmonaryveins. A circumferential lesion set was placed around the left pulmonary veins. Comments: Total ablation time (seconds): 456 PVCs Energy Source Ablation Catheter Used Rhythm During Ablation # of AttemptsMax Tim Max Temp. Result RF TactiFlex NSR 16 40 25 Success PVC's originating in the right ventricular outflow tract were mapped andablated. Catheter Use Catheter Type Catheter Description Insertion Site Intracardiac Site SheathSize Sheath Type Sheath Description Diagnostic 6 Fr x 110cm, 2-5-2mm spacing, 1mm tip, Large curve, InquiryDecapolar Steerable EP Cath Left Femoral Vein CS 7 Fr. Standard Sidearm Intracardiac Echo AcuNav Diagnostic Ultrasound Catheter, 90cm GE LeftFemoral Vein HRA 9 Fr. Standard Sidearm Ablation 115cm, Size 8, Bi-D Irrigated Ablation Catheter, Curve D-F RightFemoral Vein Map/Abl 8.5 Guide SL1 Diagnostic Level 1 Esophageal/Rectal Temperature Probe Esophagus Esophagus Diagnostic 8Fr x 110cm Advisor HD Grid, Sensor Enabled High DensityMapping Catheter Right Femoral Vein Map/Abl 8.5 Guide SL1 Procedure(s) Performed ? [facility]-R[facility] Ultrasound used for vascular access ? Intracardiac Echocardiography ? 3D Mapping ? A Fib/PV Isolation Ablation ? Ablation of Separate Mechanism of Tachychardia ? Programmed stimulation after drug Infusion (e.g.,Isoproteronol) Auxiliary Device Intracardiac Echo Used: Yes Mapping System 1: MICHAEL Navix Procedure Detail Estimated Blood Loss: < 50 ml Specimen Collected: None Level of Sedation Achieved: See Anesthesia Note Total Flouro Time: 7 REGULATORY AFFAIRS ANALYST Total Flouro Dose: 41 mGy Transseptal Mean LA Pressure: 10 mmHg Staff Name Role Diomedes Brown Pole Cutter [place] RN Nurse Melody Butler CVT Monitor Eloy Naqvi EPT Scrub Devan Lew CVT Unleavened Dough Mixer Velvet, Olvin Anesthesiologist Will, Tia Schuler CRNA, RN Nurse Medications Ordered and Administered Start Time Stop Time Medication Dose Units Route Ordered By Given By 08:51 0.25% Bupivicaine 5 mL Subcut MD Diomedes Sol MD 08:51 1% Lidocaine Hydrochloride 5 mL Subcut MD Diomedes Sol MD 08:58 Heparin 54242 Units IV MD Del Sol, ORACIO 09:23 Heparin 3000 Units IV MD Del Sol, ORACIO 09:52 Heparin 200 Units IV MD Del Sol, ORACIO 10:02 (New Bag) Isoproterenol (Isuprel) 5 mcg per min IV MD Tia Sol RN 10:11 (Existing) Isuprel 0 mcg per min IV MD Herbert Sol RN 10:23 Heparin 5000 Units IV MD Del Sol, ORACIO 10:43 (Existing) Isuprel 15 mcg per min IV MD Meenu Sol RN 10:49 Adenosine 12 Mg IV MD Del Sol, ORACIO 10:51 Adenosine 12 Mg IV MD Del Sol, RN 10:56 Protamine 45 Mg IV MD Del Sol, RN The anesthesia service monitored the patient?s conscious sedation duringthe procedure. The medications listed above were verbally ordered by me and read back tome as documented above. Refer to the hemodynamic procedure log report for additional casedetails. electronically signed on 09/12/2023 11:36:21 PM with status of Final Diomedes Brown MD Pole Cutter [address] [place] [address] [address] (p) [phone](f) Diomedes Brown MD CV IMAGING * HCHG TUBE PR1, HCHG STYLET PR1 (09/03/2023 8:41 AM CDT) Narrative Adriano Watts CRNA - 09/03/2023 8:41 AM CDT Adriano Watts CRNA ? 09/03/2023 ??8:43 AM Procedure: ETT Patient location during procedure: OR ETT Properties Mask Ventilation: easy Final Technique: direct laryngoscopy Type: straight Location: oral Cuffed: yes Tube Size: 7.5 mm Stylet: yes Laryngoscope Blade: Maier Blade Size: 2 Cormack-Lehane Grade View: 1 Insertion Attempts: 1 Placement Verification: auscultation, end tidal CO2, chest x-ray and symmetrical chest wall movement Assessment: pharynx clear, atraumatic and dentition unchanged Secured at: 23 Measured From: teeth Difficulty: 0 (not difficult) Olvin Verdin MD ANESTHESIA PX NOTE O RDERABLES * EXTRA TUBE GOLD/SST (09/03/2023 7:02 AM CDT) Blood BLOOD SPECIMEN / Unknown Extra Tube / Unknown 09/03/2023 7:02 AM CDT 09/03/2023 7:15 AM CDT Diomedes Brown MD LABORATORY [facility] [address] [address], * (ABNORMAL) CBC with Platelet no Diff (09/03/2023 7:02 AM CDT) WHITE BLOOD COUNT 5.7 4.5 - 11.0 thou/cu mm 09/03/2023 7:24 AM CDT [facility] RED BLOOD COUNT 4.77 4.30 - 5.90 mil/cu mm 09/03/2023 7:24 AM CDT [facility] HEMOGLOBIN 14.0 13.5 - 17.5 g/dL 09/03/2023 7:24 AM CDT [facility] HEMATOCRIT 43.6 37.0 - 53.0 % 09/03/2023 7:24 AM CDT [facility] MCV 91 80 - 100 fL 09/03/2023 7:24 AM CDT [facility] MCH 29.4 26.0 - 34.0 pg 09/03/2023 7:24 AM CDT [facility] MCHC 32.1 32.0 - 36.0 g/dL 09/03/2023 7:24 AM CDT [facility] RDW 12.7 11.5 - 15.5 % 09/03/2023 7:24 AM CDT [facility] PLATELET COUNT 207 140 - 440 thou/cu mm 09/03/2023 7:24 AM CDT [facility] MPV 11.2(H) 6.5 - 11.0 fL 09/03/2023 7:24 AM CDT [facility] NRBC 0.0 % 09/03/2023 7:24 AM CDT [facility] ABS NRBC 0.0 thou /cu mm 09/03/2023 7:24 AM CDT [facility] Blood BLOOD SPECIMEN / Unknown Venipuncture / Unknown 09/03/2023 7:02 AM CDT 09/03/2023 7:14 AM CDT Diomedes Brown MD HEMATOLOGY [facility] [address] [address], [place] * (ABNORMAL) Protime - INR (09/03/2023 7:02 AM CDT) Only the most recent of2 resultswithin the time period is included. INR 1.7(H) <1.3 09/03/2023 7:28 AM CDT [facility] PROTIME 19.0(H) 10.3 - 12.3 sec 09/03/2023 7:28 AM CDT [facility] Blood BLOOD SPECIMEN / Unknown Venipuncture / Unknown 09/03/2023 7:02 AM CDT 09/03/2023 7:14 AM CDT Narrative [facility] - 09/03/2023 7:28 AM CDT ?Therapeutic Range 2.0-3.0 for most anticoagulated patients 2.5-3.5 or 4.0 for high risk patients The INR is only used for patients on stable oral anticoagulant therapy. It makes no significant contribution to the diagnosis or treatment of patients whose Protime is prolonged for other reasons. INR results are increased when heparin levels exceed 1.0 U/mL, which corresponds to an aPTT >125 seconds if the patient is on UFH. Diomedes Brown MD HEMATOLOGY [facility] [address] [address], [place] * (ABNORMAL) Basic Metabolic Panel (09/03/2023 7:02 AM CDT) SODIUM 142 136 - 145 mmol/L 09/03/2023 7:49 AM CDT [facility] POTASSIUM 4.0 3.5 - 5.1 mmol/L 09/03/2023 7:49 AM CDT [facility] CHLORIDE 106 98 - 107 mmol/L 09/03/2023 7:49 AM CDT [facility] CO2,TOTAL 31(H) 22 - 29 mmol/L 09/03/2023 7:49 AM CDT [facility] ANION GAP 5 5 - 18 09/03/2023 7:49 AM CDT [facility] GLUCOSE 101(H) 70 - 99 mg/dL 09/03/2023 7:49 AM CDT [facility] CALCIUM 9.5 8.8 - 10.2 mg/dL 09/03/2023 7:49 AM CDT [facility] BUN 17 8 - 23 mg/dL 09/03/2023 7:49 AM CDT [facility] CREATININE 0.98 0.70 - 1.20 mg/dL 09/03/2023 7:49 AM CDT [facility] BUN/CREAT RATIO 17 10 - 20 7:49 AM CDT [facility] eGFR 85(L) >90 mL/min/1.7 3m2 09/03/2023 7:49 AM CDT [facility] Comment:As of 2021, eG FR is calculated by the CKD-EPI creatinine equation without race adjustment. ??eGFR can be influenced by muscle mass, exercise, and diet. ??The reported eGFR is an estimation only and is only applicable if the renal function is stable. Blood BLOOD SPECIMEN / Unknown Venipuncture / Unknown 09/03/2023 7:02 AM CDT 09/03/2023 7:14 AM CDT Diomedes Brown MD [facility] [address] [place] [address], * SCAN-CARDIAC STRIP (09/03/2023 12:00 AM CDT) Narrative 09/03/2023 12:00 AM CDT Ordered by an unspecified provider. Other Clinical Staff OTHER from Last 3 Months Advance Directives * Full Code (Latest Code Status on File) Date Activated Date Inactivated Comments 09/03/2023 11:01 AM 09/03/2023 8:45 PM Question Answer Comments Code Status Discussion: Reviewed Preferences * Full Code Date Activated Date Inactivated Comments 11/22/2022 5:57 AM 11/23/2022 7:16 PM Question Answer Comments Code Status Discussion: Unable to Assess Preferences, Provider to review later * Full Code Date Activated Date Inactivated Comments 08/28/2022 3:34 PM 08/30/2022 3:57 PM Question Answer Comments Code Status Discussion: Reviewed Preferences Care Teams Cutter Hand Relationship Specialty Start Date End Date Anayeli Stewart MD [address] [place] [address] PCP - General Family Practice 05/03/16
--- OUTSIDE RECORDS SUMMARY | 2023-10-16 12:45 | XMS_ITS | Referral Summary ---
Author Organization [facility] Address [address] [place] [address] Care Team Providers Care Sap Abap Developer Name Role Phone Unavailable Primary Care Provider Unavailabl e Source Comments Patient records contain information from all sites at [facility]. For routine questions regarding patient records, call [phone] during business hours, M-F 8:00 AM - 5:00 PM Central Time. Record requests for emergency care only can be directed to [phone] at any time.[facility] Allergies No known active allergies Medications Medication Sig Dispensed Refills Start Date End Date Status tamsulosin (FLOMAX) 0.4 mg 24 hr capsule Take 1 capsule by mouth daily. 03/24/2022 Active warfarin (COUMADIN) 5 mg tablet TAKE ONE AND ONE-HALF TABLETS BY MOUTH SUNDAY AND SUNDAY. TAKE 1 TABLET BY MOUTH REST OF THE WEEK DIRECTED 06/05/2022 Active flecainide (TAMBOCOR) 100 mg tablet Take 1 tablet by mouth 2 (two) times a day. Extra 1/2 tablet as needed in evening 06/06/2022 Active Active Problems Problem Noted Date Diagnosed Date Factor V Leiden Family History 07/10/2022 Acid Painter (Current) Anticoagulant Treatment 06/20 Benign Prostatic Hyperplasia [...] How often do you attend chur or adventism services? More than 4 times per year 07/10/2022 Do you belong to any clubs o r organizations such as shinto groups, unions, fraternal or athletic groups, or [...] and heating? Not hard at all 07/10/2022 [facility] - Occupational Stress [...] money to buy more. Never true 07/11/19 Within the past 12 months, t he [...] place to sleep or slept in a long-term (including now)? No 07/10/2022 Nutrition Answer Date [...] Master's degree (e.g., NHUNG, MS, Taran, MEd, PLASTIC EYE TECHNICIAN, JUSTUS) 07/10/2022 Sex and Gender Information Value Date Recorded Sex Assigned at Male 07/10/2022 8:15 AM CDT Gender Identity Male 07/10/2022 8:15 AM CDT Sexual Orientation Straight 07/10/2022 8: 15 AM CDT Plan of Treatment Not on file
--- OUTSIDE RECORDS SUMMARY | 2023-10-16 12:45 | XMS_ITS ---
Author Organization [facility] Address [address] [place] [address] Care Team Providers Care Senior Statistician Name Role Phone Unavailable Unavailable Unavailable Surgery Details Not on file Complications Check Surgery Details section. Procedure Estimated Blood Loss Check Surgery Details section. Procedure Findings Check Surgery Details section. Procedure Specimens Taken Check Surgery Details section.
--- OUTSIDE RECORDS SUMMARY | 2023-10-16 12:45 | XMS_ITS | Data Portability ---
Author Organization 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 Plan of Treatment Reminders Order Date Submit Date Provider Last Modified By Organization Details Last Modified Time Details Appointments None recorded. Lab urinalysis, dipstick 2022 023 [email or web address] er2 [facility], [address], [place], [address], 3 11:38:18 urinalysis, dipstick 2023 024 [email or web address] er2 [facility], [address], [place], [address], 4 12:27:13 Referral None recorded. Procedures None recorded. Surgeries transurethr al resection of prostate (SURG) 2022 023 [email or web address] Not available 3 09:17:54 Imaging None recorded. Medication Orders finasteride 5 mg tablet 2022 023 [id number], [address] [place], [place], [id number], 3 11:12:16 finasteride 5 mg tablet 2022 023 [id number], [address] [place], [place], [phone], 15:19:09 Patient TargetsNo targets recorded. Patient Instructions Encounter Date Encounter Id Patient Instructions Last Modified By Organization Details Last Modified Time 10/17/2022 [id number] I had a long discussion with the [...] orifices/urinary sphincter, urethral stricture formation, anesthetic risks (CVA/DVT/PE/OK), postoperative urinary retention, and expected durability of [...] (we reviewed this). Not available 10/17/2022 11:38:58 12/29/2022 [id number] Jake is ecstati c s/p Aquablation. He'll stop Flomax, and continue finasteride for another 3 months - then stop. With me in 3 months. Not available 12/29/2022 15:19:27 03/23/2023 [id number] Jake is very happy. He'll finish finasteride bottle, then stop. With me in 1 year, PSA / UA / PVR that day. Not available 03/23/2023 12:27:11 Reason for Referral None Reported. Results Created Date Observation Date Name Description Value Unit Range Abnormal Flag Note LastModifiedBy Organization Detail LastModifiedTime 10/18/1910/17/2022 urina lysis , dipst ick Color-Status Yellow Not Available [facility] [address], [place], [address], 10/17/2022 10:18:52 10/18/19 23 10/17/2022 urina lysis , dipst ick Clarity-Stat us Clear Not Available [facility] [address], [place], [address], 10/17/2022 10:18:52 10/18/19 23 10/17/2022 urina lysis , dipst ick Glucose-Stat us Negati ve Not Available [facility] [address], [place], [address], 10/17/2022 10:18:52 10/18/19 23 10/17/2022 urina lysis , dipst ick Bilirubin-St atus Negati ve Not Available [facility] [address], [place], [address], 10/17/2022 10:18:52 10/18/19 23 10/17/2022 urina lysis , dipst ick Ketones-Stat us Negati ve Not Available [facility] [address], [place], [address], 10/17/2022 10:18:52 10/18/19 23 10/17/2022 urina lysis , dipst ick Sp [place]-Stat us >=1.03 0 Not Available [facility] [address], [place], [address], 10/17/2022 10:18:52 10/18/19 23 10/17/2022 urina lysis , dipst ick Nitrates-Sta tus negati ve Not Available [facility] [address], [place], [address], 10/17/2022 10:18:52 10/18/19 23 10/17/2022 urina lysis , dipst ick Blood-Status Negati ve Not Available [facility] [address], [place], [address], 10/17/2022 10:18:52 10/18/19 23 10/17/2022 urina lysis , dipst ick Leuko-Status Negati ve Not Available [facility] [address], [place], [address], 10/17/2022 10:18:52 10/18/19 23 10/17/2022 urina lysis , dipst ick Specimen Type Voided Not Available [facility] [address], [place], [address], 10/17/2022 10:18:52 03/23/19 24 03/23/2023 urina lysis , dipst ick Color-Status Yellow Not Available [facility] [address], [place], [address], 03/23/2023 11:44:49 03/23/19 24 03/23/2023 urina lysis , dipst ick Clarity-Stat us Clear Not Available [facility] [address], [place], [address], 03/23/2023 11:44:49 03/23/19 24 03/23/2023 urina lysis , dipst ick Glucose-Stat us Negati ve Not Available [facility] [address], [place], [address], 03/23/2023 11:44:49 03/23/19 24 03/23/2023 urina lysis , dipst ick Bilirubin-St atus Negati ve Not Available [facility] [address], [place], [address], 03/23/2023 11:44:49 03/23/19 24 03/23/2023 urina lysis , dipst ick Ketones-Stat us Negati ve Not Available [facility] [address], [place], [address], 03/23/2023 11:44:49 03/23/19 24 03/23/2023 urina lysis , dipst ick Nitrates-Sta tus negati ve Not Available [facility] [address], [place], [address], 03/23/2023 11:44:49 03/23/19 24 03/23/2023 urina lysis , dipst ick Blood-Status Negati ve Not Available [facility] [address], [place], [address], 03/23/2023 11:44:49 03/23/19 24 03/23/2023 urina lysis , dipst ick Leuko-Status Negati ve Not Available [facility] [address], [place], [address], 03/23/2023 11:44:49 Result Notes None recorded. Problems Name Problem SNOMED Code Status Onset Date Resolution Date Notes Provider Name and Address Organization Details Recorded Time Lower urinary tract symptoms due to benign prostatic hypertrophy 7696990329564 1 Active 2022 Mansoor ely MD [address] [place] [address],[address] [place] [address], [address], [facility] 3 11:37:18 Retention of urine 631961307 Active 2022 Mansoor ely MD [address] [place] [address],[address] [place] [address], [address], [facility] 3 11:37:22 Incomplete emptying of urinary bladder 319265541 Active 2022 Mansoor ely MD [address] [place] [address],[address], [place], [address], [facility] 3 11:37:28 Benign prostatic hyperplasia with outflow obstruction 481410853 Active 2023 Mansoor ely MD [address], [place], [address], [facility] 4 12:26:52 Problem Notes None recorded. Procedures Surgical History Date Name Laterality Status Provider Name and Address Organization Details Recorded Time 03/23/19 24 Bladder Scan completed Raul cordova [facility] 03/23/2023 11:44:44 12/30/19 23 Bladder Scan completed Juany cordova [facility] 12/29/2022 14:54:57 10/18/19 23 CystoscopyMale completed Mansoor Abreu MD [address] [place] [address],[address], [place], [address], [facility] 10/17/2022 11:37:16 10/18/19 23 Bladder Scan completed Mansoor Abreu MD [address] [place] [address],[address], [place], [address], [facility] 10/17/2022 10:18:49 09/07/19 23 Fill and Pull/Voiding Trial/TOV completed Juany cordova [facility] 09/06/2022 10:41:29 08/20/19 23 cardiac ablation using fluoroscopy guidance completed Juany cordova [facility] 09/06/2022 10:30:04 Imaging Results None recorded. [...] Available Not Available fluconazole 150 mg tablet 03/23 completed Not Available Not Available Not Available warfarin [...] 1 capsule every day by oral route. 03/23 completed Not Available Not Available Not Available temazepam 30 mg capsule TAKE 1 CAPSULE BY MOUTH PRIOR TO PROCEDURE IF NEEDED FOR SLEEP 03/23 completed Not Available Not Available Not Available cephalexin 500 mg capsule TAKE 1 CAPSULE BY MOUTH THREE TIMES DAILY 12/29 completed Not Available Not Available Not Available pantoprazol e 40 mg tablet,rekha yed release active Not Available Not Available Not Available warfarin 5 mg tablet TAKE 7.5MG BY MOUTH ON SUNDAY AND SUNDAY. 5MG BY MOUTH FOR THE REST OF THE WEEK active Not Available Not Available No t Available flecainide 100 mg tablet TAKE 1 TABLET BY MOUTH EVERY 12 HOURS. MAY TAKE AN EXTRA 1/2 TABLET IN THE PM NEEDED 03/23 completed Not Available Not Available Not Available finasteride 5 mg tablet TAKE 1 TABLET BY MOUTH EVERY DAY active Not Available Not Available No t Available flecainide active Not Available Not Av ailable Not Available GaviLyte-G 236 gram-22.74 gram-6.74 gram-5.86 gram oral solution 03/23 completed Not Available Not Available Not Available Vitals Date Recorded Body height Body mass index (BMI) Body weight Provider Name and Address Organization Details Last Updated DateTime 09/06/2022 182.88 cm 25.1 kg/m2 [address]174.[address] [facility] 09/06/2022 10:28:38 Date Recorded Body height Body mass index (BMI) Body weight Provider Name and Address Organization Details Last Updated DateTime 10/17/2022 182.88 cm 25.1 kg/m2 11981.59 g Mansoor Abreu MD [address], [place], [address], [facility] 10/17/2022 10:17:51 Date Recorded Body height Body mass index (BMI) Body weight Provider Name and Address Organization Details Last Updated DateTime 12/29/2022 182.88 cm 25.1 kg/m2 89468.[address] [facility] 12/29/2022 14:52:31 Date Recorded Body height Body mass index (BMI) Body weight Provider Name and Address Organization Details Last Updated DateTime 03/23/2023 182.88 cm 25.1 kg/m2 46784.[address] [facility] 03/23/2023 11:38:18 Social History Question Answer Notes LastModified by Organizat ion Details LastModified Time Tobacco Smoking Status Never Smoker Juanychaya Gomezsenthil cordova [facility] 09/06/2022 10:29:40 What Is Your Level Of Alcohol Consumption? Occasional [email or web address] Information not available 09/06/2022 What Is Your Level Of Caffeine Consumption? Moderate Information not available 03/23/2023 Are You Currently Employed? No Information not available 03/23/2023 Recreational Drug Use No Information not available 03/23/2023 What Was The Date Of Your Most Recent Tobacco Screening? 03/23/2023 Information not available 03/23/2023 Have You Ever Been Counseled For Unhealthy Alcohol Use? No Information not available 03/23/2023 What Is Your Relationship Status? Information not available 03/23/2023 Do You Use Any Illicit Or Recreational Drugs? No Information not available 03/23/2023 How Many Days In The Past Year Have You Consumed 5 Or More Drinks? 0 Information no t available 03/23/2023 Sex: Unknown Functional Status None recorded. Mental Status None recorded. Family History Nothing Reported. Medical History Condition Response Kidney Stones N Depression N GERD/Acid Reflux N Diabetes N Bleeding Disorder Y Cancer N Immunizations Vaccine Type Date Status Provider Name and Address Organization Details Recorded Time Influenza, high-dose, quadrivalent, PF 01/30/[address] [facility] 06/19/2023 16:13:04 COVID-19, mRNA, LNP-S, PF, 50 mcg/0.5 mL 01/30/[address] [facility] 06/19/2023 16:13:04 Influenza, split virus, quadrivalent, preservative 12/10/2019 completed Mansoor Abreu MD [address] [place] [address],[address], [place], [address], [facility] 10/17/2022 10:17:39 Influenza, split virus, quadrivalent, preservative 01/26/2019 completed Mansoor Abreu MD [address] [place] [address],[address], [place], [address], [facility] 10/17/2022 10:17:39 Influenza, recombinant, quadrivalent, PF 11/17/2020 completed Mansoor Abreu MD [address] [place] [address],[address], [place], [address], [facility] 10/17/2022 10:17:39 Influenza, adjuvanted, quadrivalent, PF 11/25/2021 completed Mansoor Abreu MD [address] [place] [address],[address], [place], [address], [facility] 10/17/2022 10:17:39 COVID-19, mRNA, LNP-S, PF, 100 mcg/0.5mL dose or 50 mcg/0.25mL dose 06/30/2021 completed Mansoor Abreu MD [address] [place] [address],[address], [place], [address], [facility] 10/17/2022 10:17:39 COVID-19, mRNA, LNP-S, PF, 30 mcg/0.3 mL dose 03/18/2020 completed Mansoor Abreu MD [address] [place] [address],[address], [place], [address], [facility] 10/17/2022 10:17:39 COVID-19, mRNA, LNP-S, PF, 30 mcg/0.3 mL dose 04/11/2020 completed Mansoor Abreu MD [address] [place] [address],[address], [place], [address], [facility] 10/17/2022 10:17:39 COVID-19, mRNA, LNP-S, PF, 30 mcg/0.3 mL dose 12/23/2020 completed Mansoor Abreu MD [address] [place] [address],[address], [place], [address], [facility] 10/17/2022 10:17:39 Pneumococcal conjugate PCV20, polysaccharide [id number] conjugate, adjuvant, PF 03/14/2022 completed Mansoor Abreu MD [address] [place] [address],[address], [place], [address], [facility] 10/17/2022 10:17:39 COVID-19, mRNA, LNP-S, bivalent, PF, 50 mcg/0.5 mL or 25mcg/0.25 mL dose 11/25/2021 completed Mansoor Abreu MD [address] [place] [address],[address], [place], [address], [facility] 10/17/2022 10:17:39 Tdap 06/26/2018 completed Mansoor Abreu MD [address] [place] [address],[address], [place], [address], [facility] 10/17/2022 10:17:39 Influenza, split virus, quadrivalent, PF 01/26/2018 completed Mansoor Abreu MD [address] [place] [address],[address], [place], [address], [facility] 10/17/2022 10:17:39 Past Encounters Encounter ID Performer Location Encounter Start Date Encounter Closed Date Diagnosis/Indication Diagnosis SNOMED-CT Code [id number] CAMELIA GUARDADO_Mayra Traff[address] [place] [address] 09/06/2022 10:12:45 09/14/2022 17:59:31 Retention of urine [id number] MD PHILLY Varma_Mayra Traff[address] [place] [address] 10/17/2022 10:02:51 10/20/2022 14:45:08 Lower urinary tract symptoms due to benign prostatic hypertrophy 83670093898610 Retention of urine 85940 4002 Incomplete emptying of urinary bladder 150790608 [id number] MD PHILLY [facility] [address] [place] [id number] 12/29/2022 14:45:22 01/03/2023 15:45:39 Lower urinary tract symptoms due to benign prostatic hypertrophy 60500593899591 Retention of urine 27953 4002 [id number] Mansoor Abreu MD [facility] [address] [place] [address] 03/23/2023 11:22:35 03/26/2023 12:08:51 Benign prostatic hyperplasia with outflow obstruction 629997973 Health Concerns Section Related Observation LastModified by Organization Detai ls LastModified Time None Recorded Concern Status LastModified by Organization Details LastModified Time None Recorded Advance Directives Directive None Recorded Payers Encounter Date Sequence Insurance Name Policy Number Policy Avitia Covered Member ID Avitia Member ID Guarantor Name 09/06/2022 1 [place] [id number] Jake Del Cid [id number] Jake Del Cid 10/17/2022 1 [place] [id number] Jake Solis Maria Eugenia [id number] Jake Del Cid 12/29/2022 1 [place] [id number] Jake Solis Maria Eugenia [id number] Jake Del Cid 03/23/2023 1 [place] [id number] Jake Del Cid [id number] Jake Del Cid Notes Date Note Type [...] was normal per his recollection (apparently in [place] system). Mhx: afib Fhx: father with prostate cancer (Dx in 80's), brother with BPH CAMELIA GUARDADO [address] [place] [address],[address], [place], [address], [facility] 09/06/2022 11:12:33 10/17/2022 text/html HPI Notes: [...] was normal per his recollection (apparently in [place] system). Mhx: afib Fhx: father with prostate cancer (Dx in 80's), brother with BPH PVR today 375 mL. Mansoor Abreu MD [address] [place] [address],[address], [place], [address], [facility] 10/17/2022 11:39:11 12/29/2022 text/html HPI Notes: 67M s /p Aquablation 11/22/2022, here for follow up. Path: benign. 85 gram gland, recovery has been routine, and back on warfarin. Jake is very happy - great stream, nocturia x 0-1. Emptied bladder before coming over, random bladder scan today: 73 mL (was 375 pre op). Mansoor Abreu MD [address] [place] [address],[address], [place], [address], [facility] 12/29/2022 15:19:35 03/23/2023 text/html HPI Notes: 67M s /p Aquablation 11/22/2022, here for follow up. Path: benign. 85 gram gland, recovery routine, and back on warfarin. Jake is very happy - great stream, nocturia x 0-1. PVR today low. Has stopped alpha mo, finishing finasteride. Mansoor Abreu MD [address] [place] [address],[address], [place], [address], [facility] 03/23/2023 12:27:18
--- OUTSIDE RECORDS SUMMARY | 2023-10-16 12:45 | XMS_ITS | Clinical Summary ---
Author Organization [facility] Address [address] [place] [address] Care Team Providers Care Dog Or Horse Racing Official Name Role Phone Unavailable Primary Care Provider Unavailabl e Source Comments Patient records contain information from all sites at [facility]. For routine questions regarding patient records, call [phone] during business hours, M-F 8:00 AM - 5:00 PM Central Time. 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 More than 4 times per year [...] and heating? Not hard at all 07/10/2022 [facility] - [facility] Stress Questionnaire Answer Date Recorded [...] place to sleep or slept in a half-way (including now)? No 07/10/2022 Nutrition Answer Date [...] Master's degree (e.g., NHUNG, MS, Taran, MEd, JUICE BAR TEAM MEMBER, JUSTUS) 07/10/2022 Sex and Gender Information Value [...] of 2) 2006 Depression Screening (Annual PHQ-2) 02/19/2023 Fall Risk Screen (Annual) 02/19/2023 COVID-19 Vaccine (2022-2 4 season) 2023 01/30/2023, 11/25/2021, 06/30/2021, Additional history exists Influenza Vaccine (#1) 2023 , 11/25/2021, 11/17/2020, Additional history exists DTaP,Tdap,and Td Vaccines (2 - Td or Tdap) 06/26/2028 06/26/2018 Pneumococcal vaccine (65+ years) Completed 03/14/19 23
--- NOTE | 2023-10-16 13:00 | MR_ITS ---
[address] [address] Phone:?[phone] Fax:?[phone] Referring Physician Information: Sebastián Lehman M.D. [address] [facility] [address] Phone:?[phone] Fax:?[phone] Patient:Houston Del Cid D.O.B:?1955 Sex:?Male Phone:?[phone] [facility] MRN:?[id number] Exam Date:?10/16/2023 EXAM: MRI of the LEFT SHOULDER WITHOUT CONTRAST CLINICAL HISTORY: Ongoing left shoulder pain. Evaluate for rotator cuff tear. COMPARISONS: Plain radiographs 10/12/2023. CT scan 03/23/2022. Plain radiographs 03/16/2022. TECHNICAL: MRI sequences of the left shoulder: Axials: PD, T2 Coronals: PD, STIR, T2 Sagittals: PD, T2 SEDATION: None CONTRAST: None FINDINGS: Bones: No fracture or destructive osseous lesion. Coracoacromial arch: Acromion: No os acromiale. Type I-II acromion. Acromiohumeral space: The bony distance is unremarkable. Acromioclavicular joint: No acute injury, arthropathy, or inferior hypertrophy. Coracoclavicular ligament: The coracoclavicular ligament is intact. Rotator cuff muscles/tendons: Supraspinatus: Mild tendinopathy. No muscular atrophy. Infraspinatus: Mild tendinopathy. No muscular atrophy. Teres minor: The teres minor tendon and muscle are intact. Subscapularis: The subscapularis tendon and muscle are intact. Labrum and glenohumeral joint: There is fraying and tearing of most of the labrum. Small glenohumeral joint effusion. There is diffuse full-thickness chondral loss over the superior and superomedial portions of the humeral head and grade II to III chondromalacia over the remainder of the humeral head and over much of the glenoid. No convincing evidence of capsular edema or thickening although evaluation is suboptimal because of lack of joint distention. Proximal biceps tendon, long head and short heads: There are numerous small sub-5 mm intra-articular chondral bodies including within the biceps tendon sheath. There is mild tendinopathy within the intra- articular portion of the long head of the biceps tendon. The short head is intact. Bursae: Subacromial/subdeltoid: No convincing subacromial bursal thickening/bursitis. Subcoracoid: No convincing subcoracoid bursal thickening/bursitis. IMPRESSION: 1. Substantial left glenohumeral joint osteoarthritis with diffuse full- thickness chondral loss over the superior and superomedial portions of the humeral head, grade II to III chondromalacia over the remainder of the humeral head and over much of the glenoid, fraying and tearing of most of the labrum, and numerous small sub-5 mm intra-articular chondral bodies including within the biceps tendon sheath. 2. Mild supraspinatus and infraspinatus tendinopathy. 3. No rotator cuff tendon tear or rotator cuff muscular atrophy. 4. Mild tendinopathy within the intra-articular portion of the long head of the biceps tendon. 5. Small glenohumeral joint effusion. RCB Electronically signed on 10/19/2023 7:18:00 AM by Levy Eisenberg M.D.
== END 2023-10-16 12:44 | disposition home or self-care (01) ==
LOC: MRI 12:44
PROVIDERS: PCP Family Medicine; Visit Provider Orthopaedic Surgery Sports Medicine
DX: M25.512 Pain in left shoulder (principal); M75.102 Unspecified rotator cuff tear or rupture of left shoulder, not specified as traumatic; M19.012 Primary osteoarthritis, left shoulder; M25.412 Effusion, left shoulder; M94.212 Chondromalacia, left shoulder
CPT/HCPCS: 73221

== ENCOUNTER 2024-09-23 08:50 | Outpatient (CLI) | payer MEDICARE, BC, SELFPAY | END 2024-09-23 08:51 | disposition home or self-care (01) | LOC: NFLDREF 09-25 10:54 | PROVIDERS: PCP Family Medicine; Referring Provider Family Medicine; Visit Provider Family Medicine | DX: R74.01 Elevation of levels of liver transaminase levels (principal); D68.51 Activated protein C resistance; N40.1 Benign prostatic hyperplasia with lower urinary tract symptoms; R35.0 Frequency of micturition; Z12.5 Encounter for screening for malignant neoplasm of prostate; Z13.6 Encounter for screening for cardiovascular disorders; Z79.01 Long term (current) use of anticoagulants | CPT/HCPCS: 80053; 80061; G0103 ==